=== PATIENT | female | born 1995 | race Caucasian/White ===

== ENCOUNTER 2016-07-08 04:15 | Emergency (ER) | payer BC ==
[2016-07-08] MEDS ORDERED: ALBUTEROL SULFATE 0.083% NEB 2.5 MG/3 ML AMPUL NEB ONE ×3 (05:28→05:55)
[2016-07-08] MEDS ORDERED: IPRATROPIUM/ALBUTEROL 0.5-2.5 MG/3 ML AMPUL NEB ONE (05:49)
[2016-07-08] MEDS ORDERED: PREDNISONE 20 MG TABLET PO ONE (05:49)
--- NOTE | 2016-07-08 05:56 | ER Document Report ---
HPI - HPI Patient complains to provider of: cough, wheeze 1 week Onset: Other - 1 wwek Onset/Duration: Intermittent Quality of pain: Other - soreness Pain Level: 2 Context: 20 yo smoking female with hx asthma has increased cough, wheeze for 1 week. [place] hot to spouse. No n/v/d. No chest pain. Out of albuterol MDI his week. Associated Symptoms: None Exacerbated by: Denies Relieved by: Other - albuterol helps Similar symptoms previously: Yes Recently seen / treated by doctor: No - ROS ROS below otherwise negative: Yes Systems Reviewed and Negative: Yes All other systems reviewed and negative - REPRODUCTIVE Reproductive: DENIES: : - DERM Skin Color: Normal, [place] Past Medical History - General Information source: Patient - Social History Smoking Status: Current Every Day Smoker Chew tobacco use (# tins/day): No Frequency of alcohol use: Rare Drug Abuse: None. denies: Methamphetamine Lives with: Spouse/Significant other Family History: Reviewed & Not Pertinent Pulmonary Medical History: Reports: Hx Asthma Renal/ Medical History: Denies: Hx Peritoneal Dialysis Past Surgical History: Reports: None - Immunizations Immunizations up to date: Yes Hx Diphtheria, Pertussis, Tetanus Vaccination: Yes Vertical Provider Document - CONSTITUTIONAL Agree With Documented VS: Yes Exam Limitations: No Limitations General Appearance: No Apparent Distress - INFECTION CONTROL TRAVEL OUTSIDE OF THE [place]. IN LAST 30 DAYS: No - HEENT HEENT: Normal ENT Exam - NECK Neck: Supple. negative: Lymphadenopathy-Left, Lymphadenopathy-Right - RESPIRATORY Respiratory: Wheezing - coarse insp and exp bilateral O2 Sat by Pulse Oximetry: 95 - CARDIOVASCULAR Cardiovascular: Regular Rate, Regular Rhythm - GI/ABDOMEN Gastrointestinal: Abdomen Soft, Abdomen Non-Tender, No Organomegaly - MUSCULOSKELETAL/EXTREMETIES Musculoskeletal/Extremeties: YAMILKA ADRIAN - NEURO Level of Consciousness: Awake, Alert - DERM Integumentary: Warm, Dry, No Rash Course - Re-evaluation Re-evalutation: 07/08/16 06:28 Patient states that she is breathing a lot better after the breathing treatments. She has had albuterol 5 mg and 1 DuoNeb. She's had prednisone 60 mg with 4 more days of 40 mg . I will be dispensing a albuterol metered-dose inhaler since the pharmacies are closed at this time with a prescription as well. Chest x-ray is negative per radiologist. sHe does have coarse wheezing bilateral that is persisted but less than when she came in. - Vital Signs Vital signs: Temp Pulse Resp BP Pulse Ox 98.1 F 100 20 108/72 95 07/08/16 04:22 07/08/16 04:22 07/08/16 04:22 07/08/16 04:22 07/08/16 04:22 Discharge - Discharge Clinical Impression: asthmatic bronchitis Condition: Good Disposition: HOME, SELF-CARE Instructions: Stop Smoking (REPLACED BY [facility]), Bronchitis With Bronchospasm (Wheezing) (REPLACED BY [facility]) , Steroid Medication, Inhaled Bronchodilators (REPLACED BY [facility]) Additional Instructions: See your primary care doctor quicker care for lung recheck tomorrow Stop smoking Return to the emergency room if worse Please complete the patient satisfaction survey if you get one, and return it.. If you do not receive a survey, then you can go to the REPLACED BY [facility] website, [email or web address] and place your comments about your very good care. Thank you very much. It was a pleasure being your medical provider today. Prescriptions: Albuterol Sulfate [Proair HFA Inhalation Aerosol 8.5 gm MDI] 2 puff IH Q3HP PRN #1 hfa.aer.ad PRN Reason: Prednisone [Deltasone 20 mg Tablet] 40 mg PO DAILY #8 tablet Forms: Return to Work
[2016-07-08] MEDS ORDERED: ALBUTEROL SULFATE HFA (90 MCG/PUFF) 200 PUFF/8.5 GM MDI IH ONE (06:28)
[2016-07-08 06:56] VITALS: BP 116/69
== END 2016-07-08 06:55 | disposition home or self-care (01) ==
LOC: ER 04:15
DX: J45.909 Unspecified asthma, uncomplicated (principal); R05 Cough; R06.2 Wheezing; F17.200 Nicotine dependence, unspecified, uncomplicated
CPT/HCPCS: 94640 ×2; 99284; 71020; J7512; J3490; J7620

== ENCOUNTER 2016-07-16 22:41 | Emergency (ER) | payer BC ==
[2016-07-16] MEDS ORDERED: IPRATROPIUM/ALBUTEROL 0.5-2.5 MG/3 ML AMPUL NEB ONE (22:48)
[2016-07-16] MEDS ORDERED: PREDNISONE 20 MG TABLET PO ONE (22:48)
[2016-07-16] MEDS ORDERED: ALBUTEROL SULFATE 0.083% NEB 2.5 MG/3 ML AMPUL NEB SCH (23:03)
[2016-07-17] MEDS ORDERED: ALBUTEROL SULFATE 0.083% NEB 2.5 MG/3 ML AMPUL NEB ONE ×3 (02:41→05:09)
--- NOTE | 2016-07-17 02:42 | ER Document Report ---
ED Respiratory Problem - General Time seen by provider: 02:42 Mode of Arrival: Ambulatory Information source: Patient TRAVEL OUTSIDE OF THE [place] IN LAST 30 DAYS: No - HPI Patient complains to provider of: Asthma, Cough, Short of breath Onset: Other - 2 weeks Duration: Worse/persistent Quality of pain: Achy Severity: Mild Pain Level: 2 Context: Smoker Short of Breath: Moderate Chest pain/discomfort: Tightness Cough: Productive Sputum amount: Small Sputum color: Yellow Sputum consistency: Mucoid, Thick At home treatment: Bronchodilators Associated symptoms: Congestion, Cough, Short of breath, Wheezing Similar symptoms previously: Yes Recently seen / treated by doctor: No <KAYA BRISCOE - Last Filed: 07/17/16 05:16> <SILVESTRE BECKMAN - Last Filed: 07/17/16 06:54> - General Chief Complaint: Asthma Exacerbation Stated Complaint: DIFFICULTY BREATHING - HPI Notes: Patient is a 20-year-old female with a history of asthma who smoke cigarettes, presents to the emergency room complaining of cough that's productive of yellowish phlegm, difficulty breathing with shortness of breath and wheezing, body aches, symptoms have been going on for the past 2 weeks, she reports she started new job recently and there have been multiple sick contacts at work, she 's been using nebulizer treatments at home with minimal intermittent relief ( KAYA BRISCOE) - Related Data Allergies/Adverse Reactions: No Known Allergies Allergy (Verified 07/08/16 04:32) Past Medical History - General Information source: Patient - Social History Smoking Status: Current Every Day Smoker Chew tobacco use (# tins/day): No Family History: Reviewed & Not Pertinent - Past Medical History Cardiac Medical History: Denies: Hx Heart Attack, Hx Hypertension Pulmonary Medical History: Reports: Hx Asthma Neurological Medical History: Denies: Hx Cerebrovascular Accident, Hx Seizures Renal/ Medical History: Denies: Hx Peritoneal Dialysis GI Medical History: Denies: Hx Hepatitis, Hx Hiatal Hernia, Hx Ulcer Infectious Medical History: Denies: Hx Hepatitis Past Surgical History: Denies: Hx Hysterectomy, Hx Mastectomy, Hx Open Heart Surgery, Hx Pacemaker - Immunizations Immunizations up to date: Yes Hx Diphtheria, Pertussis, Tetanus Vaccination: Yes <KAYA BRISCOE - Last Filed: 07/17/16 05:16> Review of Systems - Review of Systems Constitutional: No symptoms reported EENT: No symptoms reported Cardiovascular: No symptoms reported Respiratory: See HPI Gastrointestinal: No symptoms reported Genitourinary: No symptoms reported Female Genitourinary: No symptoms reported Musculoskeletal: See HPI Skin: No symptoms reported Hematologic/Lymphatic: No symptoms reported Neurological/Psychological: No symptoms reported -: Yes All other systems reviewed and negative <KAYA BRISCOE - Last Filed: 07/17/16 05:16> Physical Exam - Vital signs Interpretation: Tachycardic - General General appearance: Alert In distress: Mild - HEENT Head: Normocephalic, Atraumatic Eyes: Normal Conjunctiva: Normal Extraocular movements intact: Yes Eyelashes: Normal Pupils: PERRL Ears: Normal External canal: Normal Sinus: Normal Nasal: Normal Mouth/Lips: Normal Mucous membranes: Normal Pharynx: Normal Neck: Normal - Respiratory Respiratory status: Tachypnea Chest status: Nontender Breath sounds: Nonproductive cough, Wheezing Chest palpation: Normal - Cardiovascular Rhythm: Regular, Tachycardia Heart sounds: Normal auscultation Murmur: No - Abdominal Inspection: Normal Distension: No distension Bowel sounds: Normal Tenderness: Nontender Organomegaly: No organomegaly - Back Back: Normal, Nontender - Extremities General upper extremity: Normal inspection, Nontender, Normal color, Normal ROM , Normal temperature General lower extremity: Normal inspection, Nontender, Normal color, Normal ROM , Normal temperature, Normal weight bearing. No: Fartun's sign - Neurological Neuro grossly intact: Yes Cognition: Normal Orientation: AAOx4 Eze Coma Scale Eye Opening: Spontaneous Eze Coma Scale Verbal: Oriented [place] Coma Scale Motor: Obeys Commands [place] Coma Scale Total: 15 Speech: Normal Motor strength normal: LUE, RUE, LLE, RLE Sensory: Normal - Psychological Associated symptoms: Normal affect, Normal mood - Skin Skin Temperature: Warm Skin Moisture: Dry Skin Color: Normal <KAYA BRISCOE - Last Filed: 07/17/16 05:16> Course - Laboratory Result Diagrams: 07/17/16 04:29 07/17/16 04:29 - Diagnostic Test Radiology reviewed: Image reviewed, Reports reviewed <KAYA BRISCOE - Last Filed: 07/17/16 05:16> - Laboratory Result Diagrams: 07/17/16 04:29 07/17/16 04:29 <SILVESTRE BECKMAN Last Filed: 07/17/16 06:54> - Re-evaluation Re-evalutation: 07/17/16 05:18 Patient resting comfortably, reports improvement of symptoms, she continues to have diffuse wheezing, although she was moving much more air on reevaluation, lab and imaging findings were discussed with patient at bedside, she will receive tumor nebulized breathing treatments and I anticipate she will be discharged home after that with instructions for follow-up (KAYA BRISCOE) 07/17/16 06:52 Patient reevaluated after completion of neb treatments. She is pleasant and conversant with no conversational dyspnea. Her lung sounds are much improved with just faint occasional expiratory wheeze but good air movement bilaterally. Her tachypnea has resolved. She will be discharged as planned with nebulizer , antibiotics and steroids and a rescue MDI. She will follow-up with her primary care physician. We discussed strict return precautions and she is comfortable with the plan. (SILVESTRE BECKMAN) - Vital Signs Vital signs: Temp Pulse Resp BP Pulse Ox 99.7 F 120 H 34 H 118/69 97 07/17/16 01:53 07/17/16 01:53 07/17/16 05:31 07/17/16 05:31 07/17/16 05:31 - Laboratory Laboratory results interpreted by me: 07/17/16 07/17/16 04:29 04:29 RDW 14.4 H Seg Neuts % (Manual) 92 H Band Neutrophils % 2 L Lymphocytes % (Manual) 3 L Abs Lymphs (Manual) 0.2 L Chloride 109 H Carbon Dioxide 19 L BUN 6 L Glucose 129 H AST 40 H Discharge <KAYA BRISCOE - Last Filed: 07/17/16 05:16> <SILVESTRE BECKMAN - Last Filed: 07/17/16 06:54> - Discharge Clinical Impression: Acute bronchitis Qualifiers: Bronchitis organism: unspecified organism Qualified Code(s): J20.9 - Acute bronchitis, unspecified Acute asthma exacerbation Qualifiers: Asthma severity: mild persistent Qualified Code(s): J45.31 - Mild persistent asthma with (acute) exacerbation Condition: Stable Disposition: HOME, SELF-CARE Instructions: Asthma ([facility]), Azithromycin ([facility]), Stop Smoking ([facility]), Inhaled Bronchodilators ([facility]) Additional Instructions: Follow up with your primary care provider in one to 2 days. Return to the emergency room immediately if symptoms worsen or any additional concerns. Prescriptions: Albuterol Sulfate [Proair HFA Inhalation Aerosol 8.5 gm MDI] 1 puff IH Q4 PRN # 1 mdi PRN Reason: Albuterol Sulfate [Albuterol Sulfate 2.5mg/3 mL] 1 vial IH Q4 PRN #30 vial PRN Reason: Azithromycin [Zithromax 250 mg Tablet] 250 mg PO ASDIR PRN #6 tablet PRN Reason: Prednisone 40 mg PO DAILY #8 tablet Forms: Smoking Cessation Education, Return to Work Referrals: ERON KILLIAN NP [Primary Care Provider] - Follow up as needed
[2016-07-17] MEDS ORDERED: METHYLPREDNISOLONE INJ 125 MG/2 ML SDV IV ONE (03:47)
[2016-07-17] MEDS ORDERED: MAGNESIUM SULFATE/D5W 1 GM/100 ML RTUPB IV ONE ×2 (03:47→03:48)
[2016-07-17 04:51] LABS: HEMATOCRIT 39.6 % (36.0-47.0); HEMOGLOBIN 13.7 g/dL (12.0-15.5); HGB HCT DIFFERENCE 1.5; MEAN CORPUSCULAR HEMOGLOBIN 29.2 pg (27.0-33.4); MEAN CORPUSCULAR HGB CONC 34.5 g/dL (32.0-36.0); MEAN CORPUSCULAR VOLUME 85 fl (80-97); RED BLOOD COUNT 4.67 10^6/uL (3.72-5.28); RED CELL DISTRIBUTION WIDTH 14.4 % (11.5-14.0); WHITE BLOOD COUNT 7.9 10^3/uL (4.0-10.5)
[2016-07-17 05:02] LABS: ALANINE AMINOTRANSFERASE 37 U/L (9-52); ALBUMIN 4.1 g/dL (3.5-5.0); ALKALINE PHOSPHATASE 71 U/L (38-126); ANION GAP 15 (5-19); ASPARTATE AMINO TRANSFERASE 40 U/L (14-36); BILIRUBIN,DIRECT 0.3 mg/dL (0.0-0.4); BILIRUBIN,TOTAL 0.5 mg/dL (0.2-1.3); BLOOD UREA NITROGEN 6 mg/dL (7-20); CALCIUM 9.4 mg/dL (8.4-10.2); CARBON DIOXIDE 19 mmol/L (22-30); CHLORIDE 109 mmol/L (98-107); CREATININE RESULT 0.68 mg/dL (0.52-1.25); GLUCOSE 129 mg/dL (75-110); POTASSIUM 3.9 mmol/L (3.6-5.0); SODIUM 143.2 mmol/L (137-145); TOTAL PROTEIN 6.9 g/dL (6.3-8.2)
[2016-07-17] MEDS ORDERED: IPRATROPIUM/ALBUTEROL 0.5-2.5 MG/3 ML AMPUL NEB ONE (05:09)
[2016-07-17 05:34] LABS: BAND NEUTROPHILS % (MANUAL) 2 % (3-5); BASOPHILS % (MANUAL) 0 % (0-2); EOSINOPHILS % (MANUAL) 0 % (0-6); LYMPHOCYTES % (MANUAL) 3 % (13-45); TOTAL CELLS COUNTED 100
[2016-07-17 05:35] LABS: TOXIC VACUOLATION PRESENT
[2016-07-17 05:36] LABS: ANISOCYTOSIS SLIGHT; OVALOCYTES 1+; POIKILOCYTOSIS 1+
[2016-07-17 07:44] VITALS: BP 106/68
== END 2016-07-17 07:15 | disposition home or self-care (01) ==
LOC: ER 22:41
DX: J45.31 Mild persistent asthma with (acute) exacerbation (principal); J20.9 Acute bronchitis, unspecified; R05 Cough; R06.02 Shortness of breath; R00.0 Tachycardia, unspecified; F17.210 Nicotine dependence, cigarettes, uncomplicated
CPT/HCPCS: 94640 ×2; 99285; 96375; 96365; 36415; 87040; 84703; 85025; 80053; 71020; J2930; J3475; J7512; J7620 ×2

== ENCOUNTER → 2017-08-28 | Outpatient (CLI) | payer MEDICAID ==
--- NOTE | 2017-08-28 16:39 | RADIOLOGY REPORT (SQ) ---
EXAM DESCRIPTION: U/S [id number] TRNABD 1GES W/ODOP COMPLETED DATE/TIME: 08/28/2017 4:15 pm REASON FOR STUDY: Z34.81 ENCOUNTER FOR SUPRVSN OF NORMAL , FIRST TRIMESTER Z34.81 ENCOUNTE R FOR SUPRVSN OF NORMAL , FIRST TRIM COMPARISON: None. TECHNIQUE: Transabdominal static and realtime grayscale images acquired of the pelvis. Additional se lected spectral and color Doppler images recorded. All images stored on PACs. bHCG: Not available. CLINICAL DATES: Not Available. LIMITATIONS: None. FINDINGS: FETUS: Living intrauterine . ULTRASOUND EGA: 11 weeks 1 day ULTRASOUND YAMILA: 11/15/2017 CRL: 4.3 cm FHR: 162 beats per minute. SUBCHORIONIC BLEED: No. SIZE OF BLEED: Not applicable. UTERUS: No masses. No anomalies. CERVICAL LENGTH: 3.6 cm Closed. RIGHT ADNEXA: Ovary not identified. No adnexal free fluid. No adnexal masses. LEFT ADNEXA: Ovary not identified. No adnexal free fluid. No adnexal masses. FREE FLUID: None. OTHER: No other significant finding. IMPRESSION: LIVING INTRAUTERINE . EGA 11 weeks 1 day. Trimester of : First - 0 to 13 weeks. TECHNICAL DOCUMENTATION: JOB ID: [id number] [employer]- All Rights Reserved Reading location - IP/workstation name: [email or web address]
== END ==
LOC: RAD 16:56
PROVIDERS: ATTEND Nurse Practitioner Women's Health
DX: Z34.81 Encounter for supervision of other normal pregnancy, first trimester (principal); Z3A.11 11 weeks gestation of pregnancy
CPT/HCPCS: 76801

== ENCOUNTER 2017-10-15 12:00 | Inpatient (IN) | payer MEDICAID ==
--- NOTE | 2017-10-15 12:27 | ER Document Report ---
ED Medical Screen (RME) - General Chief Complaint: Breathing Difficulty Stated Complaint: SHORTNESS OF BREATH Time Seen by Provider: 10/15/17 12:20 Notes: 22-year-old female patient with asthma porch coughing a lot and difficult to breathing for the past week. There is some pain with breathing. She has been using her nebulizer but it is not helping. She is quite dyspneic with a respiratory rate near 40, tight inspiratory and expiratory wheezes, she is having to push quite hard to exhale. Patient is 18 weeks by history. She is being moved to the room now, and a racemic epi treatment being done as her albuterol nebulizer has not been helping. I have greeted and performed a rapid initial assessment of this patient. A comprehensive ED assessment and evaluation of the patient, analysis of test results and completion of the medical decision making process will be conducted by additional ED providers. TRAVEL OUTSIDE OF THE [place].S. IN LAST 30 DAYS: No - Related Data Allergies/Adverse Reactions: No Known Allergies Allergy (Verified 10/15/17 12:01) Past Medical History - Past Medical History Cardiac Medical History: Denies: Hx Heart Attack, Hx Hypertension Pulmonary Medical History: Reports: Hx Asthma Neurological Medical History: Denies: Hx Cerebrovascular Accident, Hx Seizures Renal/ Medical History: Denies: Hx Peritoneal Dialysis GI Medical History: Denies: Hx Hepatitis, Hx Hiatal Hernia, Hx Ulcer Infectious Medical History: Denies: Hx Hepatitis Past Surgical History: Denies: Hx Hysterectomy, Hx Mastectomy, Hx Open Heart Surgery, Hx Pacemaker - Immunizations Immunizations up to date: Yes Hx Diphtheria, Pertussis, Tetanus Vaccination: Yes Physical Exam - Vital signs Vitals: Temp Pulse Resp BP Pulse Ox 98.0 F 103 H 20 115/69 95 10/15/17 12:06 10/15/17 12:06 10/15/17 12:06 10/15/17 12:06 10/15/17 12:06 Course - Vital Signs Vital signs: Temp Pulse Resp BP Pulse Ox 98.0 F 103 H 35 H 115/69 95 10/15/17 12:06 10/15/17 12:06 10/15/17 12:16 10/15/17 12:06 10/15/17 12:06 Doctor's Discharge - Discharge Referrals: DERICK STEVEN NP [Primary Care Provider] - Follow up as needed
[2017-10-15] MEDS ORDERED: RACEPINEPHRINE HCL 2.25% NEB 0.5 ML AMPUL NEB ONE (12:29)
[2017-10-15] MEDS ORDERED: METHYLPREDNISOLONE INJ 125 MG/2 ML SDV IV ONE (13:05)
[2017-10-15] MEDS ORDERED: NORMAL SALINE 1000 ML 1,000 ML IV PRN (13:17)
[2017-10-15] MEDS ORDERED: NORMAL SALINE 1000 ML 1,000 ML IV ONE (13:17)
[2017-10-15] MEDS ORDERED: IPRATROPIUM/ALBUTEROL 0.5-2.5 MG/3 ML AMPUL NEB ONE (13:23)
--- NOTE | 2017-10-15 13:27 | ER Document Report ---
ED Respiratory Problem - General Chief Complaint: Breathing Difficulty Stated Complaint: SHORTNESS OF BREATH Time Seen by Provider: 10/15/17 12:20 Mode of Arrival: Ambulatory Information source: Patient Notes: Chief complaint: Shortness of breath History of complain: A 22 years old female with a history of asthma presents today with increased exacerbation for over the last 24 hours, increased wheezing since last night. No fever chills or other constitutional symptoms. Denies any productive cough Onset: As above Duration: Last 24 hours Severity: Moderate to severe Quality: Wheezing Context: Allergic to environmental pollens and heat Exacerbating factor and relieving factors: Heat makes her asthma worse REVIEW OF SYSTEMS: CONSTITUTIONAL : Denies fever, chills, or sweats. Denies recent illness. EENT: Denies eye, ear, throat, or mouth pain or symptoms. Denies nasal or sinus congestion or discharge. Denies throat, tongue, or mouth swelling or difficulty swallowing. CARDIOVASCULAR: Denies chest pain. Denies palpitations or racing or irregular heart beat. Denies ankle edema. RESPIRATORY: As per history of complain GASTROINTESTINAL: Denies abdominal pain or distention. Denies nausea, vomiting , or diarrhea. Denies blood in vomitus, stools, or per rectum. Denies black, tarry stools. Denies constipation. GENITOURINARY: Denies difficulty urinating, painful urination, burning, frequency, blood in urine, or discharge. MUSCULOSKELETAL: Denies back or neck pain or stiffness. Denies joint pain or swelling. SKIN: Denies rash, lesions or sores. HEMATOLOGIC : Denies easy bruising or bleeding. LYMPHATIC: Denies swollen, enlarged glands. NEUROLOGICAL: Denies confusion or altered mental status. Denies passing out or loss of consciousness. Denies dizziness or lightheadedness. Denies headache. Denies weakness or paralysis or loss of use of either side. Denies problems with gait or speech. Denies sensory loss, numbness, or tingling. Denies seizures. PSYCHIATRIC: Denies anxiety or stress. Denies depression, suicidal ideation, or homicidal ideation. ALL OTHER SYSTEMS REVIEWED AND NEGATIVE. Dictation was performed using [employer] voice recognition software PHYSICAL EXAMINATION: GENERAL: Well-appearing, well-nourished and in no acute distress. HEAD: Atraumatic, normocephalic. EYES: Pupils equal round and reactive to light, extraocular movements intact, sclera anicteric, conjunctiva are normal. ENT: Nares patent, oropharynx clear without exudates. Moist mucous membranes. NECK: Normal range of motion, supple without lymphadenopathy LUNGS: Breath sounds .... Bilateral diffuse expiratory wheezes . HEART: Regular rate and rhythm without murmurs ABDOMEN: Soft, nontender, nondistended abdomen. No guarding, no rebound. No masses appreciated. Musculoskeletal: Normal range of motion, no pitting or edema. No cyanosis. NEUROLOGICAL: Cranial nerves grossly intact. Normal speech, normal gait. Normal sensory, motor exams PSYCH: Normal mood, normal affect. SKIN: Warm, Dry, normal turgor, no rashes or lesions noted. TRAVEL OUTSIDE OF THE [place].S. IN LAST 30 DAYS: No - HPI Severity: Moderate Notes: Dictated - Related Data Allergies/Adverse Reactions: No Known Allergies Allergy (Verified 10/15/17 12:01) Past Medical History - Social History Smoking Status: Former Smoker Cigarette use (# per day): No Chew tobacco use (# tins/day): No Frequency of alcohol use: None Drug Abuse: None Family History: Reviewed & Not Pertinent Patient has suicidal ideation: No Patient has homicidal ideation: No - Past Medical History Cardiac Medical History: Denies: Hx Heart Attack, Hx Hypertension Pulmonary Medical History: Reports: Hx Asthma Neurological Medical History: Denies: Hx Cerebrovascular Accident, Hx Seizures Renal/ Medical History: Denies: Hx Peritoneal Dialysis GI Medical History: Denies: Hx Hepatitis, Hx Hiatal Hernia, Hx Ulcer Infectious Medical History: Denies: Hx Hepatitis Past Surgical History: Denies: Hx Hysterectomy, Hx Mastectomy, Hx Open Heart Surgery, Hx Pacemaker - Immunizations Immunizations up to date: Yes Hx Diphtheria, Pertussis, Tetanus Vaccination: Yes Review of Systems - Review of Systems Notes: Dictated Physical Exam - Vital signs Vitals: Temp Pulse Resp BP Pulse Ox 98.0 F 103 H 20 115/69 95 10/15/17 12:06 10/15/17 12:06 10/15/17 12:06 10/15/17 12:10/15/17 12:06 - Notes Notes: Dictated Course - Vital Signs Vital signs: Temp Pulse Resp BP Pulse Ox 98.8 F 108 H 20 110/53 L 90 L 10/15/17 16:28 10/15/17 16:28 10/15/17 16:28 10/15/17 16:28 10/15/17 16:28 Discharge - Discharge Clinical Impression: Acute exacerbation of extrinsic asthma Condition: Stable Disposition: ADMITTED INPATIENT Admitting Provider: Hospitalist Unit Admitted: IMCU Referrals: DERICK STEVEN NP [NO LOCAL MD] - Follow up as needed
[2017-10-15] MEDS: MAGNESIUM SULFATE/D5W 1 GM/100 ML RTUPB IV SCH ×3 (14:51→21:07)
[2017-10-15] MEDS ORDERED: HYDROCODONE BIT/HOMATROPINE SYRUP 5 ML UDCUP PO ONE (14:54)
[2017-10-15] MEDS ORDERED: HYDROCODONE BIT/HOMATROPINE 5-1.5 MG TABLET PO ONE (15:15)
--- NOTE | 2017-10-15 15:19 | RADIOLOGY REPORT (SQ) ---
EXAM DESCRIPTION: CHEST SINGLE VIEW COMPLETED DATE/TIME: 10/15/2017 1:13 pm REASON FOR STUDY: Asthma exacerbation COMPARISON: 07/17/2016. EXAM PARAMETERS: NUMBER OF VIEWS: One view. TECHNIQUE: Single frontal radiographic view of the chest acquired. RADIATION DOSE: NA LIMITATIONS: None. FINDINGS: LUNGS AND PLEURA: No opacities, masses or pneumothorax. No pleural effusion. MEDIASTINUM AND HILAR STRUCTURES: No masses. Contour normal. HEART AND VASCULAR STRUCTURES: Heart normal in size. Normal vasculature. BONES: No acute findings. HARDWARE: None in the chest. OTHER: No other significant finding. IMPRESSION: NO ACUTE RADIOGRAPHIC FINDING IN THE CHEST. TECHNICAL DOCUMENTATION: JOB ID: [id number] [employer]- All Rights Reserved Reading location - IP/workstation name: [email or web address]
[2017-10-15] MEDS ORDERED: MAG HYDROX/AL HYDROX/SIMETH SUSP 30 ML UDCUP PO PRN (19:20)
[2017-10-15] MEDS ORDERED: ACETAMINOPHEN 325 MG TABLET PO PRN (19:20)
[2017-10-15] MEDS: IPRATROPIUM/ALBUTEROL 0.5-2.5 MG/3 ML AMPUL NEB SCH (20:38)
[2017-10-15] MEDS ORDERED: CHLORPHENIRAMINE MALEATE 4 MG TABLET PO ONE (21:00)
[2017-10-15] MEDS: HEPARIN SOD (PORCINE) 5,000 UNIT/ML 1 ML SYRINGE SUBCUT SCH (22:48)
[2017-10-15] MEDS: FAMOTIDINE 20 MG TABLET PO SCH (23:41)
[2017-10-16] MEDS: MAGNESIUM SULFATE/D5W 1 GM/100 ML RTUPB IV SCH ×4 (00:18→23:33)
[2017-10-16] MEDS ORDERED: IPRATROPIUM/ALBUTEROL 0.5-2.5 MG/3 ML AMPUL NEB ONE (00:23)
[2017-10-16 00:26] LABS: ABSOLUTE RETICS # 0.104 10^6/uL (0.028-0.122); HEMATOCRIT 38.5 % (36.0-47.0); HEMOGLOBIN 13.2 g/dL (12.0-15.5); MEAN CORPUSCULAR HEMOGLOBIN 30.8 pg (27.0-33.4); MEAN CORPUSCULAR HGB CONC 34.2 g/dL (32.0-36.0); MEAN CORPUSCULAR VOLUME 90 fl (80-97); PLATELET COUNT 293 10^3/uL (150-450); RED BLOOD COUNT 4.28 10^6/uL (3.72-5.28); RED CELL DISTRIBUTION WIDTH 14.6 % (11.5-14.0); RETICULOCYTE COUNT (AUTO) 2.44 % (0.66-2.85); WHITE BLOOD COUNT 21.6 10^3/uL (4.0-10.5)
[2017-10-16 00:32] LABS: IRON(TIBC) 15.8 ug/dL (37-170)
[2017-10-16] MEDS: FLUTICASONE NASAL SPRAY 50 MCG/SPRY 120 SPRAY/16 GM NASL SCH ×3 (00:33→22:31)
[2017-10-16] MEDS ORDERED: METHYLPREDNISOLONE INJ 125 MG/2 ML SDV IV ONE (00:45)
[2017-10-16 00:46] LABS: ABSOLUTE LYMPHOCYTES# (MANUAL) 1.1 10^3/uL (0.5-4.7); ABSOLUTE MONOCYTES # (MANUAL) 1.5 10^3/uL (0.1-1.4); BASOPHILS % (MANUAL) 0 % (0-2); EOSINOPHILS % (MANUAL) 0 % (0-6); LYMPHOCYTES % (MANUAL) 5 % (13-45); MONOCYTES % (MANUAL) 7 % (3-13); SEGMENTED NEUTROPHILS % (MAN) 88 % (42-78); TOTAL CELLS COUNTED 100
[2017-10-16 00:47] LABS: PLATELET COMMENT ADEQUATE; RBC MORPHOLOGY COMMENT NORMO-CYTIC/CHROMIC
[2017-10-16 01:40] LABS: FOLATE > 20.00 ng/mL (>2.76)
[2017-10-16] MEDS: IPRATROPIUM/ALBUTEROL 0.5-2.5 MG/3 ML AMPUL NEB SCH ×4 (02:30→19:32)
[2017-10-16] MEDS: HEPARIN SOD (PORCINE) 5,000 UNIT/ML 1 ML SYRINGE SUBCUT SCH ×3 (05:31→22:32)
[2017-10-16] MEDS: METHYLPREDNISOLONE INJ 125 MG/2 ML SDV IV SCH ×3 (05:31→22:31)
[2017-10-16] MEDS: IPRATROPIUM/ALBUTEROL 0.5-2.5 MG/3 ML AMPUL NEB PRN ×3 (05:51→22:28)
[2017-10-16 06:40] LABS: ANION GAP 14 (5-19); BLOOD UREA NITROGEN 4 mg/dL (7-20); CALCIUM 9.3 mg/dL (8.4-10.2); CARBON DIOXIDE 16 mmol/L (22-30); CHLORIDE 113 mmol/L (98-107); GLUCOSE 116 mg/dL (75-110); POTASSIUM 4.5 mmol/L (3.6-5.0); SODIUM 143.3 mmol/L (137-145)
[2017-10-16 06:52] LABS: HEMATOCRIT 40.1 % (36.0-47.0); HEMOGLOBIN 13.7 g/dL (12.0-15.5); MEAN CORPUSCULAR HEMOGLOBIN 30.9 pg (27.0-33.4); MEAN CORPUSCULAR HGB CONC 34.1 g/dL (32.0-36.0); MEAN CORPUSCULAR VOLUME 91 fl (80-97); PLATELET COUNT 269 10^3/uL (150-450); RED BLOOD COUNT 4.42 10^6/uL (3.72-5.28); RED CELL DISTRIBUTION WIDTH 14.5 % (11.5-14.0)
[2017-10-16 07:43] LABS: ABSOLUTE LYMPHOCYTES# (MANUAL) 0.4 10^3/uL (0.5-4.7); ABSOLUTE MONOCYTES # (MANUAL) 0.4 10^3/uL (0.1-1.4); ABSOLUTE NEUTROPHILS# (MANUAL) 20.2 10^3/uL (1.7-8.2); BAND NEUTROPHILS % (MANUAL) 1 % (3-5); BASOPHILS % (MANUAL) 0 % (0-2); EOSINOPHILS % (MANUAL) 0 % (0-6); LYMPHOCYTES % (MANUAL) 2 % (13-45); MONOCYTES % (MANUAL) 2 % (3-13); PLATELET COMMENT ADEQUATE; POLYCHROMASIA SLIGHT; SEGMENTED NEUTROPHILS % (MAN) 95 % (42-78); TOTAL CELLS COUNTED 100; TOXIC GRANULATION SLIGHT
[2017-10-16] MEDS: FAMOTIDINE 20 MG TABLET PO SCH ×2 (09:27→22:31)
[2017-10-16] MEDS: LORATADINE 10 MG TABLET PO SCH (09:28)
[2017-10-16] MEDS: DOCUSATE SODIUM 100 MG CAPSULE PO SCH ×2 (09:31→17:42)
[2017-10-16] MEDS: NORMAL SALINE 1000 ML 1,000 ML IV PRN ×2 (09:31→23:58)
--- NOTE | 2017-10-16 10:05 | PDOC CONSULTATION ---
Consultation Consult Date: 10/16/17 Consult reason:: 18 wks EGA with asthma staticus History of Present Illness Admission Date/PCP: 10/15/17 17:56 Patient complains of: SOB and dyspnea History of Present Illness: ANA WHALEN is a 22 year old female with long history or asthma that was previously relatively well controlled. This is her second Past Medical History Cardiac Medical History: Denies: Myocardial Infarction, Hypertension Pulmonary Medical History: Reports: Asthma Neurological Medical History: Denies: Seizures GI Medical History: Denies: Hepatitis, Hiatal Hernia Psychiatric Medical History: Denies: Depression Social History Smoking Status: Former Smoker Frequency of Alcohol Use: None Hx Recreational Drug Use: No Hx Prescription Drug Abuse: No - Advance Directive Resuscitation Status: Full Code Family History Family History: Reviewed & Not Pertinent Parental Family History Reviewed: Yes Children Family History Reviewed: Yes Sibling(s) Family History Reviewed.: Yes Medication/Allergy Home Medications: Albuterol Sulfate [Proair HFA] 2 puff IH Q4HP PRN 10/15/17 Allergies/Adverse Reactions: No Known Allergies Allergy (Verified 10/15/17 12:01) Review of Systems Constitutional: PRESENT: as per HPI Physical Exam - Physical Exam Vital Signs: Temp Pulse Resp BP Pulse Ox 98.3 F 111 H 30 H 123/61 93 10/16/17 07:09 10/16/17 08:09 10/16/17 08:09 10/16/17 07:09 10/16/17 08:09 Intake & Output 10/15/17 10/16/17 10/17/17 06:59 06:59 06:59 Intake Total 466 Balance 466 Weight 61.4 kg General appearance: PRESENT: cooperative, mild distress, thin Teeth exam: PRESENT: dental caries, poor dentation Respiratory exam: PRESENT: accessory muscle use, crackles, tachypnea - Obstetrical Exam Fundal Height: u/u - u/2 Result Laboratory Results: 10/16/17 06:08 10/16/17 06:08 10/16/17 10/16/17 10/16/17 00:12 00:12 06:08 WBC 21.6 H 21.0 H RBC 4.28 4.42 Hgb 13.2 13.7 Hct 38.5 40.1 MCV 90 91 MCH 30.8 30.9 MCHC 34.2 34.1 RDW 14.6 H 14.5 H Plt Count 293 269 Seg Neutrophils % Not Reportable Not Reportable Lymphocytes % Not Reportable Not Reportable Monocytes % Not Reportable Not Reportable Eosinophils % Not Reportable Not Reportable Basophils % Not Reportable Not Reportable Absolute Neutrophils Not Reportable Not Reportable Absolute Lymphocytes Not Reportable Not Reportable Absolute Monocytes Not Reportable Not Reportable Absolute Eosinophils Not Reportable Not Reportable Absolute Basophils Not Reportable Not Reportable Retic Count (auto) 2.44 Absolute Retic 0.104 Sodium Potassium Chloride Carbon Dioxide Anion Gap BUN Creatinine Est GFR ( Amer) Est GFR (Non-Af Amer) Glucose Calcium Iron 15.8 L TIBC 414 % Saturation 4 Ferritin 38.90 Vitamin B12 584.0 Folate > 20.00 10/16/17 06:08 WBC RBC Hgb Hct MCV MCH MCHC RDW Plt Count Seg Neutrophils % Lymphocytes % Monocytes % Eosinophils % Basophils % Absolute Neutrophils Absolute Lymphocytes Absolute Monocytes Absolute Eosinophils Absolute Basophils Retic Count (auto) Absolute Retic Sodium 143.3 Potassium 4.5 Chloride 113 H Carbon Dioxide 16 L Anion Gap 14 BUN 4 L Creatinine 0.48 L Est GFR ( Amer) > 60 Est GFR (Non-Af Amer) > 60 Glucose 116 H Calcium 9.3 Iron TIBC % Saturation Ferritin Vitamin B12 Folate Impressions: Chest X-Ray 10/15/17 12:32 IMPRESSION: NO ACUTE RADIOGRAPHIC FINDING IN THE CHEST. Assessment & Plan - Time Time Spent: 30 to 50 Minutes Critical Time spent with patient: Less than 15 minutes Anticipated discharge: Home Within: within 72 hours - Plan Summary Plan Summary: at this gestational age there would be no interventions on the behalf of the fetus should delivery become necessary or imminent at the gestational age is previable. would recommend continuing with current medication use. Steroids although concerning for IUGR risks, are preferred for mothers condition. will evaluate in later 2nd and thrid trimester for growth. currently would recommend doing dopplers for heart tones q daily while hospitalized. Thank you for the consult.
--- NOTE | 2017-10-16 11:52 | PDOC PROGRESS REPORT ---
Subjective Progress Note for:: 10/16/17 Subjective:: This is 22 years old female 2 para 18 weeks presents with chief complaint of shortness of breath and wheezing. Patient has history of bronchial asthma since childhood. She reports that heat precipitated her asthma attack. She has been on bronchodilator Solu-Medrol and she was also given intermittently mag sulfate. She reports mild improvement. Reason For Visit: ASTHMA EXACERBATION 18 WKS Physical Exam Vital Signs: Temp Pulse Resp BP Pulse Ox 98.3 F 108 H 28 H 123/61 93 10/16/17 07:09 10/16/17 11:39 10/16/17 11:39 10/16/17 07:09 10/16/17 11:39 Intake & Output 10/15/17 10/16/17 10/17/17 06:59 06:59 06:59 Intake Total 466 Balance 466 Weight 61.4 kg General appearance: PRESENT: other - Moderate respiratory distress Head exam: PRESENT: atraumatic, normocephalic Eye exam: PRESENT: conjunctiva pink Neck exam: ABSENT: carotid bruit, JVD, lymphadenopathy, thyromegaly Respiratory exam: PRESENT: wheezes GI/Abdominal exam: PRESENT: normal bowel sounds, soft. ABSENT: distended, guarding, mass, organolmegaly, rebound, tenderness Neurological exam: PRESENT: alert, awake, oriented to time, oriented to situation Psychiatric exam: PRESENT: normal mood Results Laboratory Results: 10/16/17 06:08 10/16/17 06:08 10/16/17 10/16/17 10/16/17 00:12 00:12 06:08 WBC 21.6 H 21.0 H RBC 4.28 4.42 Hgb 13.2 13.7 Hct 38.5 40.1 MCV 90 91 MCH 30.8 30.9 MCHC 34.2 34.1 RDW 14.6 H 14.5 H Plt Count 293 269 Seg Neutrophils % Not Reportable Not Reportable Lymphocytes % Not Reportable Not Reportable Monocytes % Not Reportable Not Reportable Eosinophils % Not Reportable Not Reportable Basophils % Not Reportable Not Reportable Absolute Neutrophils Not Reportable Not Reportable Absolute Lymphocytes Not Reportable Not Reportable Absolute Monocytes Not Reportable Not Reportable Absolute Eosinophils Not Reportable Not Reportable Absolute Basophils Not Reportable Not Reportable Retic Count (auto) 2.44 Absolute Retic 0.104 Sodium Potassium Chloride Carbon Dioxide Anion Gap BUN Creatinine Est GFR ( Amer) Est GFR (Non-Af Amer) Glucose Calcium Iron 15.8 L TIBC 414 % Saturation 4 Ferritin 38.90 Vitamin B12 584.0 Folate > 20.00 10/16/17 06:08 WBC RBC Hgb Hct MCV MCH MCHC RDW Plt Count Seg Neutrophils % Lymphocytes % Monocytes % Eosinophils % Basophils % Absolute Neutrophils Absolute Lymphocytes Absolute Monocytes Absolute Eosinophils Absolute Basophils Retic Count (auto) Absolute Retic Sodium 143.3 Potassium 4.5 Chloride 113 H Carbon Dioxide 16 L Anion Gap 14 BUN 4 L Creatinine 0.48 L Est GFR ( Amer) > 60 Est GFR (Non-Af Amer) > 60 Glucose 116 H Calcium 9.3 Iron TIBC % Saturation Ferritin Vitamin B12 Folate Impressions: Chest X-Ray 10/15/17 12:32 IMPRESSION: NO ACUTE RADIOGRAPHIC FINDING IN THE CHEST. Assessment & Plan - Diagnosis (1) ACUTE ASTHMA ATTACK Is this a current diagnosis for this admission?: Yes Plan: Continue bronchodilator, supplemental oxygen and Solu-Medrol (2) Qualifiers: Weeks of gestation: 18 weeks Qualified Code(s): Z3A.18 - 18 weeks gestation of Is this a current diagnosis for this admission?: Yes Plan: Follow-up per [facility]
[2017-10-16] MEDS ORDERED: ALBUTEROL SULFATE 0.083% NEB 2.5 MG/3 ML AMPUL NEB ONE ×2 (13:51→15:00)
[2017-10-16 14:00] LABS: ARTERIAL BLOOD BASE EXCESS -7.8 mmol/L; ARTERIAL BLOOD H2CO3 0.84 mmol/L (1.05-1.35); ARTERIAL BLOOD HCO3 15.9 mmol/L (20-26); ARTERIAL BLOOD O2 SATURATION 95.6 % (94-98); ARTERIAL BLOOD PCO2 27.8 mmHg (35-45); ARTERIAL BLOOD PH 7.37 (7.35-7.45); ARTERIAL BLOOD TOTAL CO2 16.7 mmol/L (21-25)
[2017-10-16 14:04] LABS: ARTERIAL BLOOD FIO2 3L
--- NOTE | 2017-10-16 14:22 | Physician Advisory Note ---
Physician Advisor ProgressNote .: Pursuant to the plan for Mike Yap, I have reviewed the medical record for this patient. Physician Advisor Statement: Nice documentation of concerns - pt w/exacerb asthma, despite 1 night of aggressive hospital care still has mod resp distress & needs ongoing hospital level care & monitoring. Care given w/meds/doses due to incidental . Please consider documenting, if you agree: 1. "acute exac of type asthma, with incidental " - A. "mild intermittent"? "mild/mod/sev persistent"? (reference below dashed line) - B. Payers need it explicit for all dx.s: related to pt's ? or a totally separate, non-OB, issue? (Affects billing.) Status: Most asthma/COPD exac.s are "Obs 'til proven otherwise", but this pt not yet safe for d/c after 1 night of hospital care - agree w/ Inpatient status. Thanks! CK REFERENCE: Dx of type of chronic asthma is based on worst category in which pt has at least 1 of following s/s present at baseline: A. Mild Intermittent: only needs albuterol occasionally. B. Mild Persistent: sx >2x/wk, nocturnal sx up to 4x/mo, FEV1 80+% predicted C. Mod Persistent: sx (or albuterol) daily, nocturnal sx >1x/wk, FEV1 60-80% predicted D. Severe Persistent: activities curtailed, frequent exacerbations, noct sx frequent, FEV1 <60% predicted.
[2017-10-16] MEDS: MAGNESIUM SULFATE 1 GM/D5W 100 ML IV SCH ×2 (17:40→19:05)
--- NOTE | 2017-10-16 18:39 | PDOC CONSULTATION ---
Consultation Consult Date: 10/16/17 Attending physician:: BRIELLE HENLEY History of Present Illness Admission Date/PCP: 10/15/17 17:56 History of Present Illness: ANA WHALEN is a 22 year old female,cough x 1 week worse last two days productive yellow-green phlem no hemotysis questionable fever and chills.She does not follow her peak flows She has never smoked but has had large exsposure to passive smoke.Hx of astma at childhood did not affect her first .one dog no recent travels no sick contacts Past Medical History Cardiac Medical History: Denies: Myocardial Infarction, Hypertension Pulmonary Medical History: Reports: Asthma Neurological Medical History: Denies: Seizures GI Medical History: Denies: Hepatitis, Hiatal Hernia Psychiatric Medical History: Denies: Depression Hematology: Denies: Anemia, Sickle Cell Disease Past Surgical History Past Surgical History: Denies: Amputation, Hysterectomy, Mastectomy, Pacemaker Social History Information Source: [facility] Records Smoking Status: Former Smoker Frequency of Alcohol Use: None Hx Recreational Drug Use: No Hx Prescription Drug Abuse: No - Advance Directive Resuscitation Status: Full Code Family History Parental Family History Reviewed: No Children Family History Reviewed: No Sibling(s) Family History Reviewed.: No Medication/Allergy Allergies/Adverse Reactions: No Known Allergies Allergy (Verified 10/15/17 12:01) Review of Systems Constitutional: PRESENT: chills, fever(s). ABSENT: night sweats Eyes: PRESENT: visual disturbances Ears: PRESENT: hearing changes Nose, Mouth, and Throat: PRESENT: sore throat. ABSENT: mouth pain Cardiovascular: PRESENT: dyspnea on exertion. ABSENT: edema, orthropnea, palpitations Respiratory: PRESENT: cough, dyspnea, sputum. ABSENT: hemoptysis Gastrointestinal: PRESENT: dysphagia, heartburn. ABSENT: abdominal pain, bloating, coffee ground emesis, hematemesis, hematochezia, melena, nausea, vomiting Genitourinary: ABSENT: difficulty urinating, hematuria Musculoskeletal: PRESENT: back pain. ABSENT: joint swelling Integumentary: ABSENT: pruritus, rash Neurological: ABSENT: abnormal movements, abnormal speech, focal weakness, frequent falls, lack of coordination, memory loss Psychiatric: ABSENT: hallucinations, homidical ideation, suicidal ideation Endocrine: ABSENT: cold intolerance, heat intolerance, polydipsia, polyuria Hematologic/Lymphatic: ABSENT: lymphadenopathy Allergic/Immunologic: PRESENT: seasonal rhinorrhea Physical Exam Vital Signs: Temp Pulse Resp BP Pulse Ox 98.1 F 117 H 36 H 114/53 L 98 10/16/17 16:00 10/16/17 16:00 10/16/17 18:00 10/16/17 17:43 10/16/17 18:00 Intake & Output 10/15/17 10/16/17 10/17/17 06:59 06:59 06:59 Intake Total 466 125 Output Total 250 Balance 466 -125 Weight 61.4 kg General appearance: PRESENT: cooperative, disheveled, mild distress, well- developed, well-nourished Head exam: PRESENT: atraumatic, normocephalic Eye exam: PRESENT: conjunctiva pale, EOMI, PERRLA. ABSENT: nystagmus, periorbital swelling, scleral icterus Mouth exam: PRESENT: moist, neck supple, tongue midline, other - no plaques or patches min erythema Teeth exam: PRESENT: other - Several blackened teeth Throat exam: PRESENT: post pharyngeal erythema - minimal Neck exam: ABSENT: carotid bruit, JVD, lymphadenopathy, thyromegaly, tracheal deviation, tracheostomy Respiratory exam: PRESENT: prolonged expiratory phas, rhonchi, wheezes. ABSENT : stridor, unlabored Cardiovascular exam: PRESENT: RRR, +S1, +S2 Pulses: PRESENT: normal radial pulses GI/Abdominal exam: PRESENT: normal bowel sounds, soft Extremities exam: ABSENT: calf tenderness, clubbing, joint swelling, +1 edema Musculoskeletal exam: ABSENT: deformity, dislocation Neurological exam: PRESENT: alert, awake Psychiatric exam: PRESENT: anxious, normal mood Skin exam: PRESENT: dry, warm Results Laboratory Results: 10/16/17 06:08 10/16/17 06:08 10/16/17 10/16/17 10/16/17 00:12 00:12 06:08 WBC 21.6 H 21.0 H RBC 4.28 4.42 Hgb 13.2 13.7 Hct 38.5 40.1 MCV 90 91 MCH 30.8 30.9 MCHC 34.2 34.1 RDW 14.6 H 14.5 H Plt Count 293 269 Seg Neutrophils % Not Reportable Not Reportable Lymphocytes % Not Reportable Not Reportable Monocytes % Not Reportable Not Reportable Eosinophils % Not Reportable Not Reportable Basophils % Not Reportable Not Reportable Absolute Neutrophils Not Reportable Not Reportable Absolute Lymphocytes Not Reportable Not Reportable Absolute Monocytes Not Reportable Not Reportable Absolute Eosinophils Not Reportable Not Reportable Absolute Basophils Not Reportable Not Reportable Retic Count (auto) 2.44 Absolute Retic 0.104 Carbonic Acid HCO3/H2CO3 Ratio ABG pH ABG pCO2 ABG pO2 ABG HCO3 ABG O2 Saturation ABG Base Excess FiO2 Sodium Potassium Chloride Carbon Dioxide Anion Gap BUN Creatinine Est GFR ( Amer) Est GFR (Non-Af Amer) Glucose Calcium Iron 15.8 L TIBC 414 % Saturation 4 Ferritin 38.90 Vitamin B12 584.0 Folate > 20.00 10/16/17 10/16/17 06:08 13:40 WBC RBC Hgb Hct MCV MCH MCHC RDW Plt Count Seg Neutrophils % Lymphocytes % Monocytes % Eosinophils % Basophils % Absolute Neutrophils Absolute Lymphocytes Absolute Monocytes Absolute Eosinophils Absolute Basophils Retic Count (auto) Absolute Retic Carbonic Acid 0.84 L HCO3/H2CO3 Ratio 18:1 ABG pH 7.37 ABG pCO2 27.8 L ABG pO2 79.0 L ABG HCO3 15.9 L ABG O2 Saturation 95.6 ABG Base Excess -7.8 FiO2 3L Sodium 143.3 Potassium 4.5 Chloride 113 H Carbon Dioxide 16 L Anion Gap 14 BUN 4 L Creatinine 0.48 L Est GFR ( Amer) > 60 Est GFR (Non-Af Amer) > 60 Glucose 116 H Calcium 9.3 Iron TIBC % Saturation Ferritin Vitamin B12 Folate Impressions: Chest X-Ray 10/15/17 12:32 IMPRESSION: NO ACUTE RADIOGRAPHIC FINDING IN THE CHEST. Assessment & Plan - Diagnosis (1) ACUTE ASTHMA ATTACK Is this a current diagnosis for this admission?: Yes Plan: Generic Name Dose Route Start Last Admin Trade Name Freq PRN Reason Stop Dose Admin Methylprednisolone Sodium Succinate 125 mg 10/16/17 06:00 10/16/17 13:20 Solu-Medrol Inj/Pf 125 Mg/2 Ml Sdv IV 11/15/17 05:59 125 mg Q8 AFSHIN Albuterol/Ipratropium 3 ml 10/15/17 20:00 10/16/17 13:23 Duoneb 3 Ml Ampul NEB 11/14/17 19:59 3 ml RTQ6 AFSHIN Fluticasone Propionate 2 spray 10/15/17 22:00 06/26/18 09:31 Flonase Nasal Girard 50 Mcg/Girard 16 Gm NASL 11/14/17 21:59 Not Given Q12 AFSHIN add pulmicort singular theophyline - Time Total Critical Time (Minutes): 0
[2017-10-16] MEDS ORDERED: THEOPHYLLINE ANHYDROUS 300 MG TAB.SR.12H PO ONE (19:30)
[2017-10-16] MEDS ORDERED: MONTELUKAST SODIUM 10 MG TABLET PO ONE (19:30)
[2017-10-16] MEDS: BUDESONIDE NEB 0.5 MG/2 ML AMPUL NEB SCH (19:32)
[2017-10-16] MEDS ORDERED: CHLORPHENIRAMINE MALEATE 4 MG TABLET PO ONE (23:01)
[2017-10-16 23:16] LABS: ARTERIAL BLOOD BASE EXCESS -7.6 mmol/L; ARTERIAL BLOOD H2CO3 0.65 mmol/L (1.05-1.35); ARTERIAL BLOOD HCO3 14.4 mmol/L (20-26); ARTERIAL BLOOD PCO2 21.6 mmHg (35-45); ARTERIAL BLOOD PH 7.44 (7.35-7.45); ARTERIAL BLOOD PO2 85.3 mmHg (80-100); ARTERIAL BLOOD TOTAL CO2 15.1 mmol/L (21-25)
[2017-10-16 23:17] LABS: ARTERIAL BLOOD FIO2 4L
[2017-10-16] MEDS: GUAIFENESIN/D-METHORPHAN (200-20 MG) SYRUP 10 ML PO SCH (23:34)
[2017-10-17] MEDS ORDERED: CHLORPHENIRAMINE MALEATE 4 MG TABLET ONE (00:17)
[2017-10-17] MEDS: MAGNESIUM SULFATE/D5W 1 GM/100 ML RTUPB IV SCH (01:28)
[2017-10-17] MEDS: IPRATROPIUM/ALBUTEROL 0.5-2.5 MG/3 ML AMPUL NEB SCH ×4 (02:00→21:29)
[2017-10-17] MEDS ORDERED: LORAZEPAM INJ 2 MG/1 ML VIAL ONE (02:08)
[2017-10-17] MEDS ORDERED: LORAZEPAM INJ 2 MG/1 ML VIAL IV ONE ×2 (02:30→08:00)
[2017-10-17 04:09] LABS: ARTERIAL BLOOD BASE EXCESS -9.6 mmol/L; ARTERIAL BLOOD H2CO3 0.61 mmol/L (1.05-1.35); ARTERIAL BLOOD HCO3 12.8 mmol/L (20-26); ARTERIAL BLOOD O2 SATURATION 97.3 % (94-98); ARTERIAL BLOOD PH 7.42 (7.35-7.45); ARTERIAL BLOOD PO2 91.8 mmHg (80-100); ARTERIAL BLOOD TOTAL CO2 13.4 mmol/L (21-25)
[2017-10-17 04:10] LABS: ARTERIAL BLOOD FIO2 4L
[2017-10-17 04:12] LABS: ARTERIAL BLOOD PCO2 20.4 mmHg (35-45)
[2017-10-17 04:15] LABS: ABSOLUTE MONOCYTES (AUTO) 0.5 10^3/uL (0.1-1.4); ABSOLUTE NEUT (AUTO) 17.6 10^3/uL (1.7-8.2); BASOPHILS % (AUTO) 0.1 % (0-2); EOSINOPHILS % (AUTO) 0.1 % (0-6); HEMATOCRIT 33.7 % (36.0-47.0); LYMPHOCYTES % (AUTO) 5.2 % (13-45); MEAN CORPUSCULAR HEMOGLOBIN 30.4 pg (27.0-33.4); MEAN CORPUSCULAR HGB CONC 34.2 g/dL (32.0-36.0); MEAN CORPUSCULAR VOLUME 89 fl (80-97); MONOCYTES % (AUTO) 2.7 % (3-13); PLATELET COUNT 247 10^3/uL (150-450); RED CELL DISTRIBUTION WIDTH 14.5 % (11.5-14.0); SEGMENTED NEUTROPHILS % (AUTO) 91.9 % (42-78); TOTAL CELLS COUNTED % (AUTO) 100 %; WHITE BLOOD COUNT 19.1 10^3/uL (4.0-10.5)
[2017-10-17 04:17] LABS: HEMOGLOBIN 11.5 g/dL (12.0-15.5)
[2017-10-17 04:28] LABS: ANION GAP 10 (5-19); BLOOD UREA NITROGEN 5 mg/dL (7-20); CARBON DIOXIDE 16 mmol/L (22-30); CHLORIDE 115 mmol/L (98-107); GLUCOSE 109 mg/dL (75-110); POTASSIUM 3.9 mmol/L (3.6-5.0)
[2017-10-17] MEDS: GUAIFENESIN/D-METHORPHAN (200-20 MG) SYRUP 10 ML PO SCH ×4 (05:58→23:32)
[2017-10-17] MEDS: METHYLPREDNISOLONE INJ 125 MG/2 ML SDV IV SCH ×3 (05:59→21:56)
[2017-10-17] MEDS: HEPARIN SOD (PORCINE) 5,000 UNIT/ML 1 ML SYRINGE SUBCUT SCH ×3 (07:16→21:56)
[2017-10-17] MEDS ORDERED: RACEPINEPHRINE HCL 2.25% NEB 0.5 ML AMPUL NEB ONE (08:26)
[2017-10-17] MEDS ORDERED: BENZONATATE 100 MG CAPSULE PO PRN (08:26)
[2017-10-17] MEDS: BUDESONIDE NEB 0.5 MG/2 ML AMPUL NEB SCH ×2 (08:40→21:28)
[2017-10-17] MEDS ORDERED: PROPOFOL 1,000 MG/100 ML INFUS..BTL IV ONE ×2 (09:18→11:10)
[2017-10-17] MEDS: IPRATROPIUM/ALBUTEROL 0.5-2.5 MG/3 ML AMPUL NEB PRN ×2 (09:43→16:29)
[2017-10-17] MEDS ORDERED: MIDAZOLAM HCL 50 MG/100 ML RTUINJ ONE (09:47)
--- NOTE | 2017-10-17 09:56 | PDOC PROGRESS REPORT ---
Subjective Progress Note for:: 10/17/17 Subjective:: Pt has been placed on a ventilator. Reason For Visit: ASTHMA EXACERBATION 18 WKS Physical Exam - Physical Exam Vital Signs: Temp Pulse Resp BP Pulse Ox 98.2 F 104 H 39 H 97/52 L 98 10/17/17 07:52 10/17/17 08:40 10/17/17 08:40 10/17/17 07:52 10/17/17 08:40 Intake & Output 10/16/17 10/17/17 10/18/17 06:59 06:59 06:59 Intake Total 466 1992 Output Total 850 Balance 466 1142 Weight 61.4 kg 61 kg Result Laboratory Results: 10/17/17 03:58 10/17/17 03:58 10/16/17 10/16/17 10/17/17 13:40 23:10 03:40 WBC RBC Hgb Hct MCV MCH MCHC RDW Plt Count Seg Neutrophils % Lymphocytes % Monocytes % Eosinophils % Basophils % Absolute Neutrophils Absolute Lymphocytes Absolute Monocytes Absolute Eosinophils Absolute Basophils Carbonic Acid 0.84 L 0.65 L Cancelled HCO3/H2CO3 Ratio 18:1 22:1 Cancelled ABG pH 7.37 7.44 Cancelled ABG pCO2 27.8 L 21.6 L Cancelled ABG pO2 79.0 L 85.3 Cancelled ABG HCO3 15.9 L 14.4 L Cancelled ABG O2 Saturation 95.6 97.0 Cancelled ABG Base Excess -7.8 -7.6 Cancelled FiO2 3L 4L Cancelled Sodium Potassium Chloride Carbon Dioxide Anion Gap BUN Creatinine Est GFR ( Amer) Est GFR (Non-Af Amer) Glucose Calcium 10/17/17 10/17/17 10/17/17 03:58 03:58 04:02 WBC 19.1 H RBC 3.80 Hgb 11.5 L D Hct 33.7 L MCV 89 MCH 30.4 MCHC 34.2 RDW 14.5 H Plt Count 247 Seg Neutrophils % 91.9 H Lymphocytes % 5.2 L Monocytes % 2.7 L Eosinophils % 0.1 Basophils % 0.1 Absolute Neutrophils 17.6 H Absolute Lymphocytes 1.0 Absolute Monocytes 0.5 Absolute Eosinophils 0.0 Absolute Basophils 0.0 Carbonic Acid 0.61 L HCO3/H2CO3 Ratio 20:1 ABG pH 7.42 ABG pCO2 20.4 L* ABG pO2 91.8 ABG HCO3 12.8 L ABG O2 Saturation 97.3 ABG Base Excess -9.6 FiO2 4L Sodium 141.0 Potassium 3.9 Chloride 115 H Carbon Dioxide 16 L Anion Gap 10 BUN 5 L Creatinine 0.47 L Est GFR ( Amer) > 60 Est GFR (Non-Af Amer) > 60 Glucose 109 Calcium 8.0 L Impressions: Chest X-Ray 10/15/17 12:32 IMPRESSION: NO ACUTE RADIOGRAPHIC FINDING IN THE CHEST. Assessment & Plan - Diagnosis (1) ACUTE ASTHMA ATTACK Is this a current diagnosis for this admission?: Yes Plan: The pt is being treated for the asthma by ICU. The fetus should do well as long as O2 sats can be maintained above 95%. All normal measures for the asthma should be taken for the benefit of pt and fetus and we should not limit beneficial treatments because of the . If there are questions from the ICU staff please call.
[2017-10-17] MEDS ORDERED: THEOPHYLLINE ANHYDROUS 300 MG TAB.SR.12H PO SCH (10:00)
--- NOTE | 2017-10-17 10:42 | RADIOLOGY REPORT (SQ) ---
EXAM DESCRIPTION: CHEST SINGLE VIEW COMPLETED DATE/TIME: 10/17/2017 10:09 am REASON FOR STUDY: ET and NG tube Placement COMPARISON: 10/15/2017 EXAM PARAMETERS: NUMBER OF VIEWS: One view TECHNIQUE: Single frontal radiograph of the chest. RADIATION DOSE: N/A LIMITATIONS: None. FINDINGS: TEMPORARY SUPPORT DEVICES:ETT in expected location. NG tube courses below the quan-diaphr agm in to the stomach. LUNGS AND PLEURA: Interval development of diffuse parenchymal opacities predominantly perihilar. No e ffusions. No masses. No pneumothorax. MEDIASTINUM AND HILAR STRUCTURES: No masses. Contour normal. HEART AND VASCULAR STRUCTURES: Heart normal in size. normal vascularity. Aorta normal for age. BONES: No acute findings. OTHER: No other significant finding. IMPRESSION: Interval development of diffuse perihilar parenchymal opacities. SUPPORT DEVICE(S) IN EXPECTED LOCATIONS. TECHNICAL DOCUMENTATION: JOB ID: [id number] [employer]- All Rights Reserved Reading location - IP/workstation name: [email or web address]
[2017-10-17] MEDS: DOCUSATE SODIUM 100 MG CAPSULE PO SCH ×2 (11:05→17:36)
[2017-10-17] MEDS: FLUTICASONE NASAL SPRAY 50 MCG/SPRY 120 SPRAY/16 GM NASL SCH ×2 (11:06→21:58)
[2017-10-17] MEDS: LORATADINE 10 MG TABLET PO SCH (11:09)
[2017-10-17] MEDS: FAMOTIDINE 20 MG TABLET PO SCH ×2 (11:11→21:56)
[2017-10-17] MEDS: NORMAL SALINE 500 ML with ROCURONIUM BROMIDE 500 MG IV PRN ×2 (11:13)
[2017-10-17] MEDS: MIDAZOLAM HCL 50 MG/100 ML RTUINJ IV PRN ×4 (11:13→22:50)
[2017-10-17 11:17] LABS: ARTERIAL BLOOD HCO3 16.9 mmol/L (20-26); ARTERIAL BLOOD O2 SATURATION 97.4 % (94-98); ARTERIAL BLOOD PCO2 36.5 mmHg (35-45); ARTERIAL BLOOD PH 7.28 (7.35-7.45); ARTERIAL BLOOD PO2 108.5 mmHg (80-100)
[2017-10-17 11:18] LABS: ARTERIAL BLOOD FIO2 40%
[2017-10-17] MEDS: NORMAL SALINE 1000 ML 1,000 ML IV PRN ×2 (11:25→17:42)
[2017-10-17] MEDS ORDERED: METOPROLOL TARTRATE PF/INJ 5 MG/5 ML SDV IV ONE ×2 (12:00→18:00)
[2017-10-17 13:24] LABS: ARTERIAL BLOOD BASE EXCESS -8.3 mmol/L; ARTERIAL BLOOD H2CO3 0.94 mmol/L (1.05-1.35); ARTERIAL BLOOD HCO3 16.4 mmol/L (20-26); ARTERIAL BLOOD O2 SATURATION 97.7 % (94-98); ARTERIAL BLOOD PCO2 31.1 mmHg (35-45); ARTERIAL BLOOD PH 7.34 (7.35-7.45); ARTERIAL BLOOD PO2 106.4 mmHg (80-100); ARTERIAL BLOOD TOTAL CO2 17.3 mmol/L (21-25)
[2017-10-17 13:26] LABS: ARTERIAL BLOOD FIO2 40%
[2017-10-17] MEDS: METOPROLOL TARTRATE PF/INJ 5 MG/5 ML SDV IV PRN (14:31)
[2017-10-17] MEDS ORDERED: SUCCINYLCHOLINE CHLORIDE INJ 200 MG/10 ML VIAL ONE (15:00)
--- NOTE | 2017-10-17 15:35 | PDOC PROGRESS REPORT ---
Subjective Subjective:: This is 2 para 89 years old female patient admitted with asthma exacerbation. Patient has been on high-dose steroids 125 mg Solu-Medrol , DuoNeb, Pulmicort and she has gotten several doses of magnesium sulfate despite this treatment patient continues to have tachypnea and also her chest is full of diffuse wheezing. Yesterday patient transferred to ICU. This morning I evaluated her chest tachypneic in the range of 35-[address] Watts decided to intubate her. Reason For Visit: ASTHMA EXACERBATION 18 WKS Physical Exam Vital Signs: Temp Pulse Resp BP Pulse Ox 99.3 F 108 H 22 H 109/65 98 10/17/17 14:00 10/17/17 14:00 10/17/17 14:15 10/17/17 14:15 10/17/17 14:15 Intake & Output 10/16/17 10/17/17 10/18/17 06:59 06:59 06:59 Intake Total 466 1992 Output Total 850 185 Balance 466 1142 -185 Weight 61.4 kg 61 kg General appearance: PRESENT: severe distress Head exam: PRESENT: atraumatic Eye exam: PRESENT: conjunctiva pink Mouth exam: PRESENT: dry mucosa Neck exam: ABSENT: carotid bruit, JVD, lymphadenopathy, thyromegaly Respiratory exam: PRESENT: wheezes Cardiovascular exam: PRESENT: tachycardia Results Laboratory Results: 10/17/17 03:58 10/17/17 03:58 10/16/17 10/17/17 10/17/17 23:10 03:40 03:58 WBC 19.1 H RBC 3.80 Hgb 11.5 L D Hct 33.7 L MCV 89 MCH 30.4 MCHC 34.2 RDW 14.5 H Plt Count 247 Seg Neutrophils % 91.9 H Lymphocytes % 5.2 L Monocytes % 2.7 L Eosinophils % 0.1 Basophils % 0.1 Absolute Neutrophils 17.6 H Absolute Lymphocytes 1.0 Absolute Monocytes 0.5 Absolute Eosinophils 0.0 Absolute Basophils 0.0 Carbonic Acid 0.65 L Cancelled HCO3/H2CO3 Ratio 22:1 Cancelled ABG pH 7.44 Cancelled ABG pCO2 21.6 L Cancelled ABG pO2 85.3 Cancelled ABG HCO3 14.4 L Cancelled ABG O2 Saturation 97.0 Cancelled ABG Base Excess -7.6 Cancelled FiO2 4L Cancelled Sodium Potassium Chloride Carbon Dioxide Anion Gap BUN Creatinine Est GFR ( Amer) Est GFR (Non-Af Amer) Glucose Calcium Triglycerides 10/17/17 10/17/17 10/17/17 03:58 03:58 04:02 WBC RBC Hgb Hct MCV MCH MCHC RDW Plt Count Seg Neutrophils % Lymphocytes % Monocytes % Eosinophils % Basophils % Absolute Neutrophils Absolute Lymphocytes Absolute Monocytes Absolute Eosinophils Absolute Basophils Carbonic Acid 0.61 L HCO3/H2CO3 Ratio 20:1 ABG pH 7.42 ABG pCO2 20.4 L* ABG pO2 91.8 ABG HCO3 12.8 L ABG O2 Saturation 97.3 ABG Base Excess -9.6 FiO2 4L Sodium 141.0 Potassium 3.9 Chloride 115 H Carbon Dioxide 16 L Anion Gap 10 BUN 5 L Creatinine 0.47 L Est GFR ( Amer) > 60 Est GFR (Non-Af Amer) > 60 Glucose 109 Calcium 8.0 L Triglycerides 118 10/17/17 10/17/17 10:55 13:05 WBC RBC Hgb Hct MCV MCH MCHC RDW Plt Count Seg Neutrophils % Lymphocytes % Monocytes % Eosinophils % Basophils % Absolute Neutrophils Absolute Lymphocytes Absolute Monocytes Absolute Eosinophils Absolute Basophils Carbonic Acid 1.10 0.94 L HCO3/H2CO3 Ratio 15:1 17:1 ABG pH 7.28 L 7.34 L ABG pCO2 36.5 31.1 L ABG pO2 108.5 H 106.4 H ABG HCO3 16.9 L 16.4 L ABG O2 Saturation 97.4 97.7 ABG Base Excess -9.0 -8.3 FiO2 40% 40% Sodium Potassium Chloride Carbon Dioxide Anion Gap BUN Creatinine Est GFR ( Amer) Est GFR (Non-Af Amer) Glucose Calcium Triglycerides Impressions: Chest X-Ray 10/17/17 09:28 IMPRESSION: Interval development of diffuse perihilar parenchymal opacities. SUPPORT DEVICE(S) IN EXPECTED LOCATIONS. Assessment & Plan - Diagnosis (1) ACUTE ASTHMA ATTACK Is this a current diagnosis for this admission?: Yes Plan: Patient failed to respond to appropriate management and has to be intubated. (2) Status asthmaticus Is this a current diagnosis for this admission?: Yes Plan: Patient intubated because she failed to respond to the regular treatment (3) First trimester Is this a current diagnosis for this admission?: Yes Plan: Follow-up [facility] - Time Time Spent with patient: 35 or more minutes
[2017-10-17 16:42] LABS: ARTERIAL BLOOD H2CO3 0.82 mmol/L (1.05-1.35); ARTERIAL BLOOD O2 SATURATION 96.7 % (94-98); ARTERIAL BLOOD PCO2 27.3 mmHg (35-45); ARTERIAL BLOOD PH 7.36 (7.35-7.45); ARTERIAL BLOOD PO2 90.2 mmHg (80-100); ARTERIAL BLOOD TOTAL CO2 15.8 mmol/L (21-25)
[2017-10-17 16:43] LABS: ARTERIAL BLOOD FIO2 40%
[2017-10-17] MEDS: PROPOFOL 1,000 MG/100 ML INFUS..BTL IV PRN ×2 (17:38→21:58)
[2017-10-17] MEDS: AMPICILLIN SODIUM/SULBACTAM NA 1.5 GM in NORMAL SALINE 50 ML IV SCH ×2 (18:01→23:33)
[2017-10-18] MEDS: NORMAL SALINE 500 ML with ROCURONIUM BROMIDE 500 MG IV PRN ×2 (01:45)
[2017-10-18] MEDS: PROPOFOL 1,000 MG/100 ML INFUS..BTL IV PRN ×2 (01:46→11:05)
[2017-10-18] MEDS: IPRATROPIUM/ALBUTEROL 0.5-2.5 MG/3 ML AMPUL NEB SCH ×2 (02:54→08:37)
[2017-10-18] MEDS: METOPROLOL TARTRATE PF/INJ 5 MG/5 ML SDV IV PRN ×2 (03:50→09:31)
[2017-10-18] MEDS: MIDAZOLAM HCL 50 MG/100 ML RTUINJ IV PRN ×2 (03:51→10:47)
[2017-10-18] MEDS: NORMAL SALINE 1000 ML 1,000 ML IV PRN (04:18)
[2017-10-18 04:19] LABS: ABSOLUTE LYMPHOCYTES (AUTO) 1.2 10^3/uL (0.5-4.7); ABSOLUTE MONOCYTES (AUTO) 0.5 10^3/uL (0.1-1.4); ABSOLUTE NEUT (AUTO) 9.7 10^3/uL (1.7-8.2); BASOPHILS % (AUTO) 0.1 % (0-2); EOSINOPHILS % (AUTO) 0.1 % (0-6); HEMATOCRIT 32.1 % (36.0-47.0); HEMOGLOBIN 10.9 g/dL (12.0-15.5); LYMPHOCYTES % (AUTO) 10.9 % (13-45); MEAN CORPUSCULAR HEMOGLOBIN 30.8 pg (27.0-33.4); MEAN CORPUSCULAR VOLUME 91 fl (80-97); MONOCYTES % (AUTO) 4.1 % (3-13); PLATELET COUNT 250 10^3/uL (150-450); RED BLOOD COUNT 3.54 10^6/uL (3.72-5.28); RED CELL DISTRIBUTION WIDTH 14.4 % (11.5-14.0); SEGMENTED NEUTROPHILS % (AUTO) 84.8 % (42-78); TOTAL CELLS COUNTED % (AUTO) 100 %; WHITE BLOOD COUNT 11.5 10^3/uL (4.0-10.5)
[2017-10-18 04:34] LABS: ALANINE AMINOTRANSFERASE 31 U/L (9-52); ALBUMIN 2.9 g/dL (3.5-5.0); ALKALINE PHOSPHATASE 64 U/L (38-126); ANION GAP 9 (5-19); ASPARTATE AMINO TRANSFERASE 20 U/L (14-36); BILIRUBIN,DIRECT 0.3 mg/dL (0.0-0.4); BILIRUBIN,TOTAL 0.3 mg/dL (0.2-1.3); BLOOD UREA NITROGEN 7 mg/dL (7-20); CALCIUM 8.1 mg/dL (8.4-10.2); CARBON DIOXIDE 17 mmol/L (22-30); CHLORIDE 117 mmol/L (98-107); GLUCOSE 111 mg/dL (75-110); PHOSPHORUS 2.7 mg/dL (2.5-4.5); POTASSIUM 4.3 mmol/L (3.6-5.0); TOTAL PROTEIN 5.6 g/dL (6.3-8.2)
[2017-10-18] MEDS: GUAIFENESIN/D-METHORPHAN (200-20 MG) SYRUP 10 ML PO SCH (05:28)
[2017-10-18] MEDS: HEPARIN SOD (PORCINE) 5,000 UNIT/ML 1 ML SYRINGE SUBCUT SCH (05:29)
[2017-10-18] MEDS: AMPICILLIN SODIUM/SULBACTAM NA 1.5 GM in NORMAL SALINE 50 ML IV SCH (05:29)
[2017-10-18] MEDS: METHYLPREDNISOLONE INJ 125 MG/2 ML SDV IV SCH (05:29)
[2017-10-18 05:56] LABS: ARTERIAL BLOOD BASE EXCESS -7.9 mmol/L; ARTERIAL BLOOD H2CO3 0.88 mmol/L (1.05-1.35); ARTERIAL BLOOD HCO3 16.2 mmol/L (20-26); ARTERIAL BLOOD O2 SATURATION 97.5 % (94-98); ARTERIAL BLOOD PCO2 29.1 mmHg (35-45); ARTERIAL BLOOD PH 7.36 (7.35-7.45); ARTERIAL BLOOD PO2 100.3 mmHg (80-100); ARTERIAL BLOOD TOTAL CO2 17.1 mmol/L (21-25)
[2017-10-18 06:04] LABS: ARTERIAL BLOOD FIO2 40%
--- NOTE | 2017-10-18 07:56 | RADIOLOGY REPORT (SQ) ---
EXAM DESCRIPTION: CHEST SINGLE VIEW COMPLETED DATE/TIME: 10/18/2017 6:24 am REASON FOR STUDY: resp failure COMPARISON: Chest films 07/08/2016, 07/17/2016, 10/15/2017, 10/17/2017 EXAM PARAMETERS: NUMBER OF VIEWS: One view. TECHNIQUE: Single frontal radiographic view of the chest acquired. RADIATION DOSE: NA LIMITATIONS: None. FINDINGS: LUNGS AND PLEURA: Patchy right perihilar and left retrocardiac airspace disease seen on has partially cleared. No pneumothorax. No pleural effusion. MEDIASTINUM AND HILAR STRUCTURES: No masses. Contour normal. HEART AND VASCULAR STRUCTURES: Heart normal in size. Normal vasculature. BONES: No acute findings. HARDWARE: Endotracheal tube tip 3 cm above the justin. Nasogastric tube tip and side port below the hemidiaphragms. OTHER: No other significant finding. IMPRESSION: Tubes in appropriate position Partial clearing of the bilateral patchy airspace disease. TECHNICAL DOCUMENTATION: JOB ID: [id number] [employer]- All Rights Reserved Reading location - IP/workstation name: [email or web address]
[2017-10-18] MEDS: BUDESONIDE NEB 0.5 MG/2 ML AMPUL NEB SCH (08:37)
[2017-10-18] MEDS: DOCUSATE SODIUM 100 MG CAPSULE PO SCH (09:30)
[2017-10-18] MEDS: FAMOTIDINE 20 MG TABLET PO SCH (09:31)
[2017-10-18] MEDS: LORATADINE 10 MG TABLET PO SCH (09:31)
--- NOTE | 2017-10-18 10:01 | PDOC TRANSFER SUMMARY ---
General Admission Date/PCP: 10/15/17 17:56 Admission Date: 10/18/17 Resuscitation Status: Full Code - Transfer Diagnosis (1) ACUTE ASTHMA ATTACK Is this a current diagnosis for this admission?: Yes (2) Status asthmaticus Is this a current diagnosis for this admission?: Yes (3) First trimester Is this a current diagnosis for this admission?: Yes - Transfer Medications Home Medications: Albuterol Sulfate [Proair HFA] 2 puff IH Q4HP PRN 10/15/17 Transfer Medications: Current Medications Acetaminophen (Tylenol 325 Mg Tablet) 650 mg PO Q4HP PRN PRN Reason: FOR PAIN OR TEMP Stop: 11/14/17 19:19 Last Admin: 10/16/17 15:55 Dose: 650 mg Al Hydrox/Mg Hydrox/Simethicone (Maalox Plus Susp 30 Udcup) 30 ml PO Q6HP PRN PRN Reason: HEARTBURN Stop: 11/14/17 19:19 Albuterol/Ipratropium (Duoneb 3 Ml Ampul) 3 ml NEB RTQ6 AFSHIN Stop: 11/14/17 19:59 Last Admin: 10/18/17 08:37 Dose: 3 ml Albuterol/Ipratropium (Duoneb 3 Ml Ampul) 3 ml NEB RTQ2HP PRN PRN Reason: SHORTNESS OF BREATH Stop: 11/15/17 14:06 Last Admin: 10/17/17 16:29 Dose: 3 ml Benzonatate (Tessalon Perles 100 Mg Capsule) 100 mg PO Q8HP PRN PRN Reason: COUGH Stop: 11/16/17 08:25 Last Admin: 10/17/17 08:35 Dose: 100 mg Budesonide (Pulmicort Neb 0.5 Mg/2 Ml Ampul) 0.5 mg NEB RTQ12 AFSHIN Stop: 11/15/17 19:59 Last Admin: 10/18/17 08:37 Dose: 0.5 mg Docusate Sodium (Colace 100 Mg Capsule) 100 mg PO BID AFSHIN Stop: 11/15/17 09:59 Last Admin: 10/18/17 09:30 Dose: 100 mg Famotidine (Pepcid 20 Mg Tablet) 20 mg PO Q12 [facility] Stop: 11/14/17 21:59 Last Admin: 10/18/17 09:31 Dose: 20 mg Fluticasone Propionate (Flonase Nasal Radiant 50 Mcg/Radiant 16 Gm) 2 spray NASL Q12 [facility] Stop: 11/14/17 21:59 Last Admin: 10/17/17 21:58 Dose: Not Given Guaifenesin/Dextromethorphan (Robitussin-Dm Syrup 10 Ml Udcup) 20 ml PO Q6 [facility] Stop: 11/16/17 00:00 Last Admin: 10/18/17 05:28 Dose: 20 ml Heparin Sodium (Porcine) (Heparin Inj 5,000 Units/Ml 1 Ml Syringe) 5,000 unit SUBCUT Q8 [facility] Stop: 11/14/17 21:59 Last Admin: 10/18/17 05:29 Dose: 5,000 unit Sodium Chloride (Nacl 0.9% 1000 Ml Iv Soln) 1,000 mls @ 125 mls/hr IV CONTINUOUS PRN PRN Reason: THIS MED IS NOT "PRN" Stop: 11/15/17 09:00 Last Admin: 10/18/17 04:18 Dose: 1,000 ml Midazolam HCl (Versed Rtu 50 Mg/100 Ml Premix Bag) 50 mg in 100 mls @ 0 mls/hr IV CONTINUOUS PRN; Protocol; Titrate PRN Reason: THIS MED IS NOT "PRN" Stop: 10/24/17 10:11 Last Admin: 10/18/17 03:51 Dose: 100 ml Rocuronium [place] 500 mg/ (Sodium Chloride) 500 mls @ 0 mls/hr IV CONTINUOUS PRN; Protocol; Titrate PRN Reason: THIS MED IS NOT "PRN" Stop: 11/16/17 10:11 Last Admin: 10/18/17 01:45 Dose: 500 mg Propofol (Diprivan Rtu 1000 Mg/100 Ml Inf.Bottle) 1,000 mg in 100 mls @ 0 mls/ hr IV CONTINUOUS PRN; Protocol; Titrate PRN Reason: THIS MED IS NOT "PRN" Stop: 11/16/17 12:22 Last Admin: 10/18/17 01:46 Dose: 100 ml Ampicillin Sodium/Sulbactam (Sodium 1.5 gm/ Sodium Chloride) 50 mls @ 50 mls/ hr IV Q6 [facility] Stop: 10/24/17 17:59 Last Admin: 10/18/17 05:29 Dose: 1.5 gm Loratadine (Claritin 10 Mg Tablet) 10 mg PO DAILY [facility] Stop: 11/15/17 09:59 Last Admin: 10/18/17 09:31 Dose: 10 mg Methylprednisolone Sodium Succinate (Solu-Medrol Inj/Pf 125 Mg/2 Ml Sdv) 125 mg IV Q8 [facility] Stop: 11/15/17 05:59 Last Admin: 10/18/17 05:29 Dose: 125 mg Metoprolol Tartrate (Lopressor Inj/Pf 5 Mg/5 Ml Sdv) 5 mg IV Q4HP PRN PRN Reason: FOR HR>120 Stop: 11/16/17 11:09 Last Admin: 10/18/17 09:31 Dose: 5 mg Theophylline (Bc-Dur 300 Mg Tab.Sr) 300 mg PO DAILY [facility] Stop: 11/16/17 09:59 Last Admin: 10/17/17 11:04 Dose: Not Given - Allergies Allergies/Adverse Reactions: No Known Allergies Allergy (Verified 10/15/17 12:01) Hospital Course Hospital Course: This is 22 years old female patient, 2 para 1 in her first trimester presented acute asthma exacerbation patient has been managed accordingly with bronchodilators and steroid and supplemental oxygen but she could not talk to come out of the attack later her conditions worsened and become status asthmaticus activity time patient transferred to ICU and on the next day patient intubated and put on mechanical ventilation. She has been followed by Dr. Watts ice maker who recommended transfer to a tertiary center for higher level of care. Physical Exam Vital Signs: Temp Pulse Resp BP Pulse Ox 99.3 F 114 H 22 H 120/76 100 10/18/17 08:00 10/18/17 08:37 10/18/17 08:37 10/18/17 08:00 10/18/17 08:37 Intake & Output 10/17/17 10/18/17 10/19/17 06:59 06:59 06:59 Intake Total 1992 4170 Output Total 850 780 40 Balance 1142 3390 -40 Weight 61 kg 63.4 kg General appearance: PRESENT: severe distress Head exam: PRESENT: atraumatic, normocephalic Eye exam: PRESENT: conjunctiva pink Mouth exam: PRESENT: dry mucosa Respiratory exam: PRESENT: crackles, wheezes Cardiovascular exam: PRESENT: tachycardia GI/Abdominal exam: PRESENT: normal bowel sounds, soft. ABSENT: distended, guarding, mass, organolmegaly, rebound, tenderness Results Laboratory Results: 10/18/17 03:59 10/18/17 03:59 10/17/17 10/17/17 10/17/17 03:58 10:55 13:05 WBC RBC Hgb Hct MCV MCH MCHC RDW Plt Count Seg Neutrophils % Lymphocytes % Monocytes % Eosinophils % Basophils % Absolute Neutrophils Absolute Lymphocytes Absolute Monocytes Absolute Eosinophils Absolute Basophils Carbonic Acid 1.10 0.94 L HCO3/H2CO3 Ratio 15:1 17:1 ABG pH 7.28 L 7.34 L ABG pCO2 36.5 31.1 L ABG pO2 108.5 H 106.4 H ABG HCO3 16.9 L 16.4 L ABG O2 Saturation 97.4 97.7 ABG Base Excess -9.0 -8.3 FiO2 40% 40% Sodium Potassium Chloride Carbon Dioxide Anion Gap BUN Creatinine Est GFR ( Amer) Est GFR (Non-Af Amer) Glucose Calcium Phosphorus Magnesium Total Bilirubin AST ALT Alkaline Phosphatase Total Protein Albumin Triglycerides 118 10/17/17 10/18/17 10/18/17 16:30 03:59 03:59 WBC 11.5 H RBC 3.54 L Hgb 10.9 L Hct 32.1 L MCV 91 MCH 30.8 MCHC 34.0 RDW 14.4 H Plt Count 250 Seg Neutrophils % 84.8 H Lymphocytes % 10.9 L Monocytes % 4.1 Eosinophils % 0.1 Basophils % 0.1 Absolute Neutrophils 9.7 H Absolute Lymphocytes 1.2 Absolute Monocytes 0.5 Absolute Eosinophils 0.0 Absolute Basophils 0.0 Carbonic Acid 0.82 L HCO3/H2CO3 Ratio 18:1 ABG pH 7.36 ABG pCO2 27.3 L ABG pO2 90.2 ABG HCO3 15.0 L ABG O2 Saturation 96.7 ABG Base Excess -9.0 FiO2 40% Sodium 143.0 Potassium 4.3 Chloride 117 H Carbon Dioxide 17 L Anion Gap 9 BUN 7 Creatinine 0.46 L Est GFR ( Amer) > 60 Est GFR (Non-Af Amer) > 60 Glucose 111 H Calcium 8.1 L Phosphorus 2.7 Magnesium 2.2 Total Bilirubin 0.3 AST 20 ALT 31 Alkaline Phosphatase 64 Total Protein 5.6 L Albumin 2.9 L Triglycerides 10/18/17 05:42 WBC RBC Hgb Hct MCV MCH MCHC RDW Plt Count Seg Neutrophils % Lymphocytes % Monocytes % Eosinophils % Basophils % Absolute Neutrophils Absolute Lymphocytes Absolute Monocytes Absolute Eosinophils Absolute Basophils Carbonic Acid 0.88 L HCO3/H2CO3 Ratio 18:1 ABG pH 7.36 ABG pCO2 29.1 L ABG pO2 100.3 H ABG HCO3 16.2 L ABG O2 Saturation 97.5 ABG Base Excess -7.9 FiO2 40% Sodium Potassium Chloride Carbon Dioxide Anion Gap BUN Creatinine Est GFR ( Amer) Est GFR (Non-Af Amer) Glucose Calcium Phosphorus Magnesium Total Bilirubin AST ALT Alkaline Phosphatase Total Protein Albumin Triglycerides Impressions: Chest X-Ray 10/18/17 06:00 IMPRESSION: Tubes in appropriate position Partial clearing of the bilateral patchy airspace disease.
--- NOTE | 2017-10-18 10:54 | PDOC PROGRESS REPORT ---
Subjective Progress Note for:: 10/17/17 Subjective:: Exhausted Reason For Visit: ASTHMA EXACERBATION 18 WKS Physical Exam Vital Signs: Temp Pulse Resp BP Pulse Ox 98.2 F 90 43 H 97/52 L 98 10/17/17 07:52 10/17/17 07:52 10/17/17 07:52 10/17/17 07:52 10/17/17 07:52 Intake & Output 10/16/17 10/17/17 10/18/17 06:59 06:59 06:59 Intake Total 466 1992 Output Total 850 Balance 466 1142 Weight 61.4 kg 61 kg General appearance: PRESENT: cooperative, disheveled, mild distress, well- developed, well-nourished Head exam: PRESENT: atraumatic, normocephalic Eye exam: PRESENT: conjunctiva pale, EOMI. ABSENT: nystagmus, periorbital swelling, scleral icterus Mouth exam: PRESENT: dry mucosa, neck supple, tongue midline Neck exam: ABSENT: carotid bruit, JVD, lymphadenopathy, thyromegaly, tracheal deviation, tracheostomy Respiratory exam: PRESENT: decreased breath sounds, prolonged expiratory phas, rhonchi, symmetrical, tachypnea, wheezes. ABSENT: stridor, unlabored Cardiovascular exam: PRESENT: RRR, +S1, +S2, tachycardia Pulses: PRESENT: normal radial pulses GI/Abdominal exam: PRESENT: normal bowel sounds, soft. ABSENT: tenderness Extremities exam: PRESENT: full ROM, joint swelling, pedal edema. ABSENT: clubbing Musculoskeletal exam: PRESENT: full ROM. ABSENT: deformity, dislocation Neurological exam: PRESENT: alert, awake Psychiatric exam: PRESENT: flat affect Skin exam: PRESENT: dry, warm Results Laboratory Results: 10/17/17 03:58 10/17/17 03:58 10/16/17 10/16/17 10/17/17 13:40 23:10 03:40 WBC RBC Hgb Hct MCV MCH MCHC RDW Plt Count Seg Neutrophils % Lymphocytes % Monocytes % Eosinophils % Basophils % Absolute Neutrophils Absolute Lymphocytes Absolute Monocytes Absolute Eosinophils Absolute Basophils Carbonic Acid 0.84 L 0.65 L Cancelled HCO3/H2CO3 Ratio 18:1 22:1 Cancelled ABG pH 7.37 7.44 Cancelled ABG pCO2 27.8 L 21.6 L Cancelled ABG pO2 79.0 L 85.3 Cancelled ABG HCO3 15.9 L 14.4 L Cancelled ABG O2 Saturation 95.6 97.0 Cancelled ABG Base Excess -7.8 -7.6 Cancelled FiO2 3L 4L Cancelled Sodium Potassium Chloride Carbon Dioxide Anion Gap BUN Creatinine Est GFR ( Amer) Est GFR (Non-Af Amer) Glucose Calcium 10/17/17 10/17/17 10/17/17 03:58 03:58 04:02 WBC 19.1 H RBC 3.80 Hgb 11.5 L D Hct 33.7 L MCV 89 MCH 30.4 MCHC 34.2 RDW 14.5 H Plt Count 247 Seg Neutrophils % 91.9 H Lymphocytes % 5.2 L Monocytes % 2.7 L Eosinophils % 0.1 Basophils % 0.1 Absolute Neutrophils 17.6 H Absolute Lymphocytes 1.0 Absolute Monocytes 0.5 Absolute Eosinophils 0.0 Absolute Basophils 0.0 Carbonic Acid 0.61 L HCO3/H2CO3 Ratio 20:1 ABG pH 7.42 ABG pCO2 20.4 L* ABG pO2 91.8 ABG HCO3 12.8 L ABG O2 Saturation 97.3 ABG Base Excess -9.6 FiO2 4L Sodium 141.0 Potassium 3.9 Chloride 115 H Carbon Dioxide 16 L Anion Gap 10 BUN 5 L Creatinine 0.47 L Est GFR ( Amer) > 60 Est GFR (Non-Af Amer) > 60 Glucose 109 Calcium 8.0 L Impressions: Chest X-Ray 10/15/17 12:32 IMPRESSION: NO ACUTE RADIOGRAPHIC FINDING IN THE CHEST. Assessment & Plan - Diagnosis (1) ACUTE ASTHMA ATTACK Is this a current diagnosis for this admission?: Yes Plan: Patient getting progressively more tired intubate - Time Total Critical Time (Minutes): 40
--- NOTE | 2017-10-18 10:57 | PDOC PROGRESS REPORT ---
Subjective Progress Note for:: 10/18/17 Subjective:: Intubated very difficult to sedate Reason For Visit: ASTHMA EXACERBATION 18 WKS Physical Exam Vital Signs: Temp Pulse Resp BP Pulse Ox 99.3 F 122 H 22 H 109/72 98 10/18/17 06:00 10/18/17 02:55 10/18/17 06:15 10/18/17 06:15 10/18/17 06:15 Intake & Output 10/17/17 10/18/17 10/19/17 06:59 06:59 06:59 Intake Total 1991 4170 Output Total 850 780 Balance 1142 3390 Weight 61 kg 63.4 kg General appearance: PRESENT: no acute distress, well-developed, well-nourished. ABSENT: cooperative, disheveled Head exam: PRESENT: atraumatic, normocephalic Eye exam: PRESENT: conjunctiva pale, EOMI. ABSENT: nystagmus, periorbital swelling, scleral icterus Mouth exam: PRESENT: dry mucosa, neck supple, tongue midline, other - ET tube in place Teeth exam: PRESENT: other - Several blackened teeth Neck exam: ABSENT: carotid bruit, JVD, lymphadenopathy, thyromegaly, tracheal deviation, tracheostomy Respiratory exam: PRESENT: decreased breath sounds, prolonged expiratory phas, rhonchi, unlabored, wheezes. ABSENT: retraction, stridor Cardiovascular exam: PRESENT: RRR, +S1, +S2, tachycardia Pulses: PRESENT: normal radial pulses GI/Abdominal exam: PRESENT: normal bowel sounds, soft. ABSENT: tenderness Extremities exam: ABSENT: clubbing, joint swelling, pedal edema Musculoskeletal exam: ABSENT: deformity, dislocation Neurological exam: ABSENT: awake Skin exam: PRESENT: dry, warm Results Laboratory Results: 10/18/17 03:59 10/18/17 03:59 10/17/17 10/17/17 10/17/17 03:58 10:55 13:05 WBC RBC Hgb Hct MCV MCH MCHC RDW Plt Count Seg Neutrophils % Lymphocytes % Monocytes % Eosinophils % Basophils % Absolute Neutrophils Absolute Lymphocytes Absolute Monocytes Absolute Eosinophils Absolute Basophils Carbonic Acid 1.10 0.94 L HCO3/H2CO3 Ratio 15:1 17:1 ABG pH 7.28 L 7.34 L ABG pCO2 36.5 31.1 L ABG pO2 108.5 H 106.4 H ABG HCO3 16.9 L 16.4 L ABG O2 Saturation 97.4 97.7 ABG Base Excess -9.0 -8.3 FiO2 40% 40% Sodium Potassium Chloride Carbon Dioxide Anion Gap BUN Creatinine Est GFR ( Amer) Est GFR (Non-Af Amer) Glucose Calcium Phosphorus Magnesium Total Bilirubin AST ALT Alkaline Phosphatase Total Protein Albumin Triglycerides 118 10/17/17 10/18/17 10/18/17 16:30 03:59 03:59 WBC 11.5 H RBC 3.54 L Hgb 10.9 L Hct 32.1 L MCV 91 MCH 30.8 MCHC 34.0 RDW 14.4 H Plt Count 250 Seg Neutrophils % 84.8 H Lymphocytes % 10.9 L Monocytes % 4.1 Eosinophils % 0.1 Basophils % 0.1 Absolute Neutrophils 9.7 H Absolute Lymphocytes 1.2 Absolute Monocytes 0.5 Absolute Eosinophils 0.0 Absolute Basophils 0.0 Carbonic Acid 0.82 L HCO3/H2CO3 Ratio 18:1 ABG pH 7.36 ABG pCO2 27.3 L ABG pO2 90.2 ABG HCO3 15.0 L ABG O2 Saturation 96.7 ABG Base Excess -9.0 FiO2 40% Sodium 143.0 Potassium 4.3 Chloride 117 H Carbon Dioxide 17 L Anion Gap 9 BUN 7 Creatinine 0.46 L Est GFR ( Amer) > 60 Est GFR (Non-Af Amer) > 60 Glucose 111 H Calcium 8.1 L Phosphorus 2.7 Magnesium 2.2 Total Bilirubin 0.3 AST 20 ALT 31 Alkaline Phosphatase 64 Total Protein 5.6 L Albumin 2.9 L Triglycerides 10/18/17 05:42 WBC RBC Hgb Hct MCV MCH MCHC RDW Plt Count Seg Neutrophils % Lymphocytes % Monocytes % Eosinophils % Basophils % Absolute Neutrophils Absolute Lymphocytes Absolute Monocytes Absolute Eosinophils Absolute Basophils Carbonic Acid 0.88 L HCO3/H2CO3 Ratio 18:1 ABG pH 7.36 ABG pCO2 29.1 L ABG pO2 100.3 H ABG HCO3 16.2 L ABG O2 Saturation 97.5 ABG Base Excess -7.9 FiO2 40% Sodium Potassium Chloride Carbon Dioxide Anion Gap BUN Creatinine Est GFR ( Amer) Est GFR (Non-Af Amer) Glucose Calcium Phosphorus Magnesium Total Bilirubin AST ALT Alkaline Phosphatase Total Protein Albumin Triglycerides Impressions: Chest X-Ray 10/18/17 06:00 IMPRESSION: Tubes in appropriate position Partial clearing of the bilateral patchy airspace disease. Assessment & Plan - Diagnosis (1) ACUTE ASTHMA ATTACK Is this a current diagnosis for this admission?: Yes Plan: Patient various of difficult to sedate maxed out on propofol Versed discussed with sample hand ok to proceed with neuromuscular zackary - Time Total Critical Time (Minutes): 155 - Plan Summary Plan Summary: additional time speaking with family,OB-DERMATOLOGY PROCEDURAL PHYSICIAN ,pcp and at his request receiving Oceanographer Geological
--- NOTE | 2017-10-18 11:02 | PDOC PROGRESS REPORT ---
Subjective Progress Note for:: 10/18/17 Subjective:: Intubated And sedated Reason For Visit: ASTHMA EXACERBATION 18 WKS Physical Exam Vital Signs: Temp Pulse Resp BP Pulse Ox 99.3 F 114 H 22 H 109/72 100 10/18/17 06:00 10/18/17 08:37 10/18/17 08:37 10/18/17 06:15 10/18/17 08:37 Intake & Output 10/17/17 10/18/17 10/19/17 06:59 06:59 06:59 Intake Total 1991 4170 Output Total 850 780 Balance 1142 3390 Weight 61 kg 63.4 kg General appearance: PRESENT: disheveled, well-developed, well-nourished Head exam: PRESENT: atraumatic, normocephalic Eye exam: PRESENT: conjunctiva pale. ABSENT: EOMI, nystagmus, periorbital swelling, scleral icterus Mouth exam: PRESENT: dry mucosa, neck supple, tongue midline, other - ET tube in place Teeth exam: PRESENT: other Neck exam: ABSENT: carotid bruit, JVD, lymphadenopathy, thyromegaly, tracheal deviation, tracheostomy Respiratory exam: PRESENT: prolonged expiratory phas, rhonchi, wheezes. ABSENT : retraction, stridor Cardiovascular exam: PRESENT: RRR, +S1, +S2, tachycardia Pulses: PRESENT: normal radial pulses GI/Abdominal exam: PRESENT: diminished bowel sounds, soft Gentrourinary exam: PRESENT: indwelling catheter Extremities exam: ABSENT: clubbing, joint swelling Musculoskeletal exam: ABSENT: ambulatory, deformity, dislocation Neurological exam: ABSENT: awake Skin exam: PRESENT: dry, warm Results Laboratory Results: 10/18/17 03:59 10/18/17 03:59 10/17/17 10/17/17 10/17/17 03:58 10:55 13:05 WBC RBC Hgb Hct MCV MCH MCHC RDW Plt Count Seg Neutrophils % Lymphocytes % Monocytes % Eosinophils % Basophils % Absolute Neutrophils Absolute Lymphocytes Absolute Monocytes Absolute Eosinophils Absolute Basophils Carbonic Acid 1.10 0.94 L HCO3/H2CO3 Ratio 15:1 17:1 ABG pH 7.28 L 7.34 L ABG pCO2 36.5 31.1 L ABG pO2 108.5 H 106.4 H ABG HCO3 16.9 L 16.4 L ABG O2 Saturation 97.4 97.7 ABG Base Excess -9.0 -8.3 FiO2 40% 40% Sodium Potassium Chloride Carbon Dioxide Anion Gap BUN Creatinine Est GFR ( Amer) Est GFR (Non-Af Amer) Glucose Calcium Phosphorus Magnesium Total Bilirubin AST ALT Alkaline Phosphatase Total Protein Albumin Triglycerides 118 10/17/17 10/18/17 10/18/17 16:30 03:59 03:59 WBC 11.5 H RBC 3.54 L Hgb 10.9 L Hct 32.1 L MCV 91 MCH 30.8 MCHC 34.0 RDW 14.4 H Plt Count 250 Seg Neutrophils % 84.8 H Lymphocytes % 10.9 L Monocytes % 4.1 Eosinophils % 0.1 Basophils % 0.1 Absolute Neutrophils 9.7 H Absolute Lymphocytes 1.2 Absolute Monocytes 0.5 Absolute Eosinophils 0.0 Absolute Basophils 0.0 Carbonic Acid 0.82 L HCO3/H2CO3 Ratio 18:1 ABG pH 7.36 ABG pCO2 27.3 L ABG pO2 90.2 ABG HCO3 15.0 L ABG O2 Saturation 96.7 ABG Base Excess -9.0 FiO2 40% Sodium 143.0 Potassium 4.3 Chloride 117 H Carbon Dioxide 17 L Anion Gap 9 BUN 7 Creatinine 0.46 L Est GFR ( Amer) > 60 Est GFR (Non-Af Amer) > 60 Glucose 111 H Calcium 8.1 L Phosphorus 2.7 Magnesium 2.2 Total Bilirubin 0.3 AST 20 ALT 31 Alkaline Phosphatase 64 Total Protein 5.6 L Albumin 2.9 L Triglycerides 10/18/17 05:42 WBC RBC Hgb Hct MCV MCH MCHC RDW Plt Count Seg Neutrophils % Lymphocytes % Monocytes % Eosinophils % Basophils % Absolute Neutrophils Absolute Lymphocytes Absolute Monocytes Absolute Eosinophils Absolute Basophils Carbonic Acid 0.88 L HCO3/H2CO3 Ratio 18:1 ABG pH 7.36 ABG pCO2 29.1 L ABG pO2 100.3 H ABG HCO3 16.2 L ABG O2 Saturation 97.5 ABG Base Excess -7.9 FiO2 40% Sodium Potassium Chloride Carbon Dioxide Anion Gap BUN Creatinine Est GFR ( Amer) Est GFR (Non-Af Amer) Glucose Calcium Phosphorus Magnesium Total Bilirubin AST ALT Alkaline Phosphatase Total Protein Albumin Triglycerides Impressions: Chest X-Ray 10/18/17 06:00 IMPRESSION: Tubes in appropriate position Partial clearing of the bilateral patchy airspace disease. Assessment & Plan - Diagnosis (1) ACUTE ASTHMA ATTACK Is this a current diagnosis for this admission?: Yes Plan: Asthma slightly improved tachycardia not nearly resolved requiring continuous as needed beta-blockers no acute care obstetrical available talk to her current quantitative developer as well as primary suggested to both the patient be transferred (2) Qualifiers: Weeks of gestation: 18 weeks Qualified Code(s): Z3A.18 - 18 weeks gestation of Is this a current diagnosis for this admission?: Yes Plan: heart tones remained in the 150s - Time Total Critical Time (Minutes): 55
[2017-10-18 11:30] LABS: APPEARANCE,URINE TURBID; BILIRUBIN,URINE NEGATIVE (NEGATIVE); COLOR,URINE YELLOW; GLUCOSE, URINE NEGATIVE (NEGATIVE); KETONES,URINE 20 mg/dL (NEGATIVE); LEUKOCYTE ESTERASE,URINE NEGATIVE (NEGATIVE); NITRITE,URINE NEGATIVE (NEGATIVE); PROTEIN,URINE 30 mg/dL (NEGATIVE); UROBILINOGEN,URINE NEGATIVE mg/dL (<2.0)
[2017-10-18 12:12] VITALS: BP 107/64
== END 2017-10-18 12:25 | disposition short-term general hospital (02) | DRG 781 ==
LOC: ER 12:00 → EH 17:56 → 3N 21:57 → ICU 10-16 15:28
PROVIDERS: ADMIT Internal Medicine; ATTEND Internal Medicine
PROC: 3E0F73Z Introduction of Anti-inflammatory into Respiratory Tract, Via Natural or Artificial Opening (ICD-10-PCS; 2017-10-15)
PROC: 5A09357 Assistance with Respiratory Ventilation, Less than 24 Consecutive Hours, Continuous Positive Airway Pressure (ICD-10-PCS; 2017-10-16)
PROC: 5A1945Z Respiratory Ventilation, 24-96 Consecutive Hours (ICD-10-PCS; principal; 2017-10-17)
PROC: 0BH17EZ Insertion of Endotracheal Airway into Trachea, Via Natural or Artificial Opening (ICD-10-PCS; 2017-10-17)
DX: O99.512 Diseases of the respiratory system complicating pregnancy, second trimester (principal); J45.902 Unspecified asthma with status asthmaticus; Z87.891 Personal history of nicotine dependence; Z78.1 Physical restraint status; Z3A.18 18 weeks gestation of pregnancy
CPT/HCPCS: 31500; 36415; 71045; 80048; 80053; 80198; 81001; 82607; 82728; 82746; 82803; 83540; 83550; 83735; 84100; 84478; 85025; 85045; 87040; 87070; 87077; 87086; 87186; 87205; 94002; 94003; 94640; 94644; 96361; 96365; 96366; 96375; 99285; J0295; J0330; J1644; J2060; J2250; J2704; J2930; J3475; J3490; J7030; J7040; J7620

== ENCOUNTER 2018-02-20 11:04 | Outpatient (CLI) | payer MEDICAID ==
[2018-02-20 11:41] LABS: APPEARANCE,URINE SLIGHTLY-CLOUDY; BILIRUBIN,URINE NEGATIVE (NEGATIVE); COLOR,URINE YELLOW; GLUCOSE, URINE NEGATIVE (NEGATIVE); KETONES,URINE NEGATIVE (NEGATIVE); LEUKOCYTE ESTERASE,URINE NEGATIVE (NEGATIVE); NITRITE,URINE NEGATIVE (NEGATIVE); PROTEIN,URINE NEGATIVE (NEGATIVE); URINE SPECIFIC GRAVITY 1.004; UROBILINOGEN,URINE NEGATIVE mg/dL (<2.0)
[2018-02-20 11:56] LABS: URINE AMPHETAMINES SCREEN NEGATIVE; URINE BARBITURATES SCREEN NEGATIVE; URINE BENZODIAZEPINES SCREEN NEGATIVE; URINE COCAINE SCREEN NEGATIVE; URINE MARIJUANA (THC) SCREEN NEGATIVE; URINE METHADONE SCREEN NEGATIVE; URINE PHENCYCLIDINE SCREEN NEGATIVE
[2018-02-20 12:25] LABS: BACTERIA (WET MOUNT) 4+ BACTERIA SEEN; EPITHELIALS (WET MOUNT) 3+ EPITHELIALS SEEN; RBCS (WET MOUNT) FEW RBCS SEEN; T.VAGINALIS (WET MOUNT) NO TRICHOMONAS SEEN; WBCS (WET MOUNT) 4+ WBCS SEEN; YEAST (WET MOUNT) NO YEAST SEEN
[2018-02-20] MEDS ORDERED: METRONIDAZOLE RTU 500 MG/NS 100 ML IV ONE (13:03)
[2018-02-20] MEDS ORDERED: METRONIDAZOLE 500 MG/NS RTU 500 MG/100 ML RTUPB IV ONE (13:05)
[2018-02-20] MEDS ORDERED: RINGERS SOLUTION,LACTATED 300 ML IV ONE (13:06)
[2018-02-20] MEDS ORDERED: RINGERS SOLUTION,LACTATED 1,000 ML IV PRN (13:06)
--- NOTE | 2018-02-20 15:12 | L&D Progress Notes ---
PROGRESS NOTES Datetime Report Generated by CPN: 02/20/2018 15:12 PROGRESS NOTE Impression Other: cramping Procedures- Other: Monitor Plan: Continue Present Management Vital Signs : Reviewed; Within Normal Limits Comment: Pt c/o cramping; toco showed some irritability. Wet prep done which suggested BV. Pt given IV fluids and IV Flagyl. Cramping resolved. D/C with labor precautions. FETUS A FHR - Baseline: 120s Monitoring: External US Accelerations: 15X15 Decelerations: None FHR Category: Category I : 36.2 SIGNATURE SIGNATURE: [id number] Signature: with User ID: [email or web address]
--- NOTE | 2018-02-20 15:32 | Non Stress Test Report ---
Non Stress Test Datetime Report Generated by CPN: 02/20/2018 15:32 DEMOGRAPHIC EGA NST: 36.2 INDICATION Indication for Study: Other Indication for Study (NST) Other: labor check MONITORING Monitor Explained: Monitor Explained; Test Explained; Patient Verbalized Understanding Time on Monitor: 02/20/2018 11:28 Time off Monitor: 02/20/2018 14:23 NST Duration: 175 NST INTERVENTIONS NST Interventions: PO Hydration; Reposition Patient Physician Notified NST: Dr Younger BABY A: [id number] BABY A Movement : Present Contraction Frequency : irregular FHR Baseline : 120 Accelerations : 15X15 Decelerations : None Variability : Moderate 6-25bpm NST Review: Meets Criteria for Reactive NST NST Review and Verified By : Sharee Camp RNC NST Results: Reactive NST REPORT Report Trigger: Send Report
== END 2018-02-20 15:24 | disposition home or self-care (01) ==
LOC: LC 11:04
PROVIDERS: ATTEND Obstetrics & Gynecology
PROC: 4A1HXCZ Monitoring of Products of Conception, Cardiac Rate, External Approach (ICD-10-PCS; principal; 2018-02-20)
DX: O23.593 Infection of other part of genital tract in pregnancy, third trimester (principal); N76.0 Acute vaginitis; B96.89 Other specified bacterial agents as the cause of diseases classified elsewhere; Z3A.36 36 weeks gestation of pregnancy
CPT/HCPCS: 80307; 81005; 84112; 87210

== ENCOUNTER 2018-03-13 16:45 | Outpatient (CLI) | payer MEDICAID ==
--- NOTE | 2018-03-13 17:30 | Non Stress Test Report ---
Non Stress Test Datetime Report Generated by CPN: 03/13/2018 17:30 DEMOGRAPHIC EGA NST: 39.2 INDICATION Indication for Study: Ordered by Provider Indication for Study (NST) Other: LC MONITORING Monitor Explained: Monitor Explained; Test Explained; Patient Verbalized Understanding Time on Monitor: 03/13/2018 16:54 Time off Monitor: 03/13/2018 17:14 NST Duration: 20 NST INTERVENTIONS NST Interventions: PO Hydration Physician Notified NST: K. Benito, CNM BABY A: [id number] BABY A Movement : Present Contraction Frequency : Irregular FHR Baseline : 125 Accelerations : 15X15 Decelerations : None Variability : Moderate 6-25bpm NST Review: Meets Criteria for Reactive NST NST Review and Verified By : BENNY KINGSLEY Results: Reactive NST REPORT Report Trigger: Send Report
[2018-03-13 17:36] LABS: APPEARANCE,URINE CLOUDY; BILIRUBIN,URINE NEGATIVE (NEGATIVE); COLOR,URINE YELLOW; GLUCOSE, URINE NEGATIVE (NEGATIVE); KETONES,URINE NEGATIVE (NEGATIVE); LEUKOCYTE ESTERASE,URINE LARGE (NEGATIVE); NITRITE,URINE NEGATIVE (NEGATIVE); PROTEIN,URINE NEGATIVE (NEGATIVE); URINE SPECIFIC GRAVITY 1.008; UROBILINOGEN,URINE NEGATIVE mg/dL (<2.0)
[2018-03-13 17:58] LABS: URINE AMPHETAMINES SCREEN NEGATIVE; URINE BARBITURATES SCREEN NEGATIVE; URINE BENZODIAZEPINES SCREEN NEGATIVE; URINE COCAINE SCREEN NEGATIVE; URINE MARIJUANA (THC) SCREEN NEGATIVE; URINE METHADONE SCREEN NEGATIVE; URINE PHENCYCLIDINE SCREEN NEGATIVE
== END 2018-03-13 17:20 | disposition home or self-care (01) ==
LOC: LC 16:45
PROVIDERS: ATTEND Obstetrics & Gynecology
DX: Z34.93 Encounter for supervision of normal pregnancy, unspecified, third trimester (principal)
CPT/HCPCS: 59025; 80307; 81005

== ENCOUNTER 2018-03-19 14:41 | Inpatient (IN) | payer MEDICAID ==
[2018-03-19 15:05] LABS: APPEARANCE,URINE CLOUDY; BILIRUBIN,URINE NEGATIVE (NEGATIVE); COLOR,URINE YELLOW; GLUCOSE, URINE NEGATIVE (NEGATIVE); KETONES,URINE NEGATIVE (NEGATIVE); LEUKOCYTE ESTERASE,URINE LARGE (NEGATIVE); NITRITE,URINE NEGATIVE (NEGATIVE); PROTEIN,URINE NEGATIVE (NEGATIVE); URINE SPECIFIC GRAVITY 1.016; UROBILINOGEN,URINE NEGATIVE mg/dL (<2.0)
[2018-03-19 15:25] LABS: URINE AMPHETAMINES SCREEN NEGATIVE; URINE BARBITURATES SCREEN NEGATIVE; URINE BENZODIAZEPINES SCREEN NEGATIVE; URINE COCAINE SCREEN NEGATIVE; URINE MARIJUANA (THC) SCREEN NEGATIVE; URINE METHADONE SCREEN NEGATIVE; URINE PHENCYCLIDINE SCREEN NEGATIVE
[2018-03-19] MEDS ORDERED: ALBUTEROL SULFATE HFA (90 MCG/PUFF) 200 PUFF/8.5 GM MDI IH PRN (15:39)
[2018-03-19 16:05] LABS: HEMATOCRIT 37.9 % (36.0-47.0); HEMOGLOBIN 13.2 g/dL (12.0-15.5); MEAN CORPUSCULAR HEMOGLOBIN 30.6 pg (27.0-33.4); MEAN CORPUSCULAR HGB CONC 34.7 g/dL (32.0-36.0); MEAN CORPUSCULAR VOLUME 88 fl (80-97); PLATELET COUNT 210 10^3/uL (150-450); RED CELL DISTRIBUTION WIDTH 14.5 % (11.5-14.0); WHITE BLOOD COUNT 10.2 10^3/uL (4.0-10.5)
[2018-03-19 16:57] LABS: ABSOLUTE LYMPHOCYTES# (MANUAL) 2.7 10^3/uL (0.5-4.7); ABSOLUTE MONOCYTES # (MANUAL) 0.1 10^3/uL (0.1-1.4); ABSOLUTE NEUTROPHILS# (MANUAL) 6.9 10^3/uL (1.7-8.2); BASOPHILS % (MANUAL) 0 % (0-2); EOSINOPHILS % (MANUAL) 5 % (0-6); LYMPHOCYTES % (MANUAL) 25 % (13-45); MONOCYTES % (MANUAL) 1 % (3-13); SEGMENTED NEUTROPHILS % (MAN) 68 % (42-78); TOTAL CELLS COUNTED 100
[2018-03-19 17:00] LABS: ANISOCYTOSIS SLIGHT; BURR CELLS SLIGHT; PLATELET COMMENT ADEQUATE; PLATELET LARGE PRESENT; POIKILOCYTOSIS SLIGHT
[2018-03-19] MEDS ORDERED: OXYTOCIN/NORMAL SALINE 0 UNIT/0 ML RTUINJ ONE (17:05)
[2018-03-19] MEDS ORDERED: OXYTOCIN/NORMAL SALINE 20 UNIT/1,000 ML RTUINJ IV PRN (17:08)
[2018-03-19] MEDS ORDERED: RINGERS SOLUTION,LACTATED 1,000 ML IV ONE (17:09)
[2018-03-19] MEDS ORDERED: RINGERS SOLUTION,LACTATED 1,000 ML IV PRN (17:09)
[2018-03-19] MEDS ORDERED: CITRIC ACID/SODIUM CITRATE ORAL SOLN 15 ML UDCUP ONE (18:09)
[2018-03-19] MEDS ORDERED: OXYTOCIN 10 UNIT/ML VIAL ONE (18:49)
[2018-03-19] MEDS ORDERED: OXYTOCIN/NORMAL SALINE 20 UNIT/1,000 ML RTUINJ ONE (18:50)
[2018-03-19] MEDS ORDERED: LIDOCAINE 1% INJ-PF (10 MG/ML) 30 ML SDV ONE (18:50)
[2018-03-19] MEDS ORDERED: MISOPROSTOL 0.2 MG TABLET ONE (18:50)
[2018-03-19] MEDS ORDERED: PHENYLEPHRINE HCL INJ/PF 10 MG/1 ML SDV ONE (18:54)
[2018-03-19] MEDS ORDERED: FENTANYL CITRATE INJ/PF 100 MCG/2 ML AMPUL ONE (18:54)
[2018-03-19] MEDS ORDERED: EPHEDRINE SULFATE INJ 50 MG/1 ML AMPULE ONE (18:55)
[2018-03-19] MEDS ORDERED: BUPIVACAINE HCL 0.5 % INJ/PF 30 ML SDV ONE (18:55)
[2018-03-19] MEDS ORDERED: FENTANYL/BUPIVACAINE/NS/PF 300 MCG/150 ML RTUINJ EPI ONE (18:56)
--- NOTE | 2018-03-19 22:30 | Admission Physical ---
Datetime Report Generated by CPN: 03/19/2018 22:30 CURRENT ADMISSION Chief Complaint: Uterine Contractions; Suspected Ruptured Membranes Indication for Induction: PROM Admit Impression : Term, Intrauterine ; No Active Labor; Ruptured Membranes; Induction of Labor Admit Plan: Admit to Unit; Initiate Labor Induction Protocol ALLERGIES Medication Allergies: No Medication Allergies: No Known Allergies (03/19/2018) Latex: No Latex Allergies Food Allergies: none Environmental Allergies: dust, seasonal OBSTETRICAL HISTORY EDC: 03/18/2018 00:00 : 2 Para: 1 Term: 1 : 0 SAB: 0 IAB: 0 Ectopic: 0 Livin Cesareans: 0 VBACs: 0 Multiple Births: 0 Gestational Diabetes: No Rh Sensitization: No Incompetent Cervix: No BEATA: No Infertility: No ART Treatment: No Uterine Anomaly: No IUGR: No Hx Previous C/S: No Macrosomia: No Hx Loss/Stillborn: No PIH: No Hx : No Placenta Previa/Abruption: No Depression/PP Depression: No PTL/PROM: No Post Hemorrhage: No Current Procedures: Ultrasound; NST Obstetrical History Comments: G1- 2014 40 weeks G2- current SEE RECORDS Alcohol: No Marijuana : No Cocaine: No Other Illicit Drugs: No Cigarettes: Former Smoker. 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 Surgery: No Heart Disease: No Hosp/Surgery: Yes Autoimmune Disorder: No Anesthetic Complications: No Kidney Disease: No Abnormal Pap Smear: No Neuro/Epilepsy: No Psychiatric Disorders: No Other Medical Diseases: No Significant Family History: No Varicosities/Phlebitis: No Trauma/Violence : No Thyroid Dysfunction: No Medical History Comments: childbirth, hospitalized and intubated in september for severe asthma attack, migraines, INFECTIOUS HISTORY Gonorrhea: No Genital Herpes: No Chlamydia: No Tuberculosis: No Syphilis: No Hepatitis: No HIV/AIDS Exposure: No Rash or Viral Illness: No HPV: No PHYSICAL EXAM General: Normal HEENT: Normal Neurologic: Normal Thyroid: Deferred Heart: Normal Lungs: Normal Breast: Deferred Back: Deferred Abdomen: Normal Genitourinary Exam: Normal Extremities: Normal DTRs: Normal Pelvic Type: Adequate Vital Signs: Reviewed VAGINAL EXAM Dilatation: 2 Effacement: 60 Station: -3 Contraction Comments: rare MEMBRANES Membranes: Ruptured Amniotic Fluid Color: Clear FETUS A EGA: 40.1 Monitoring: External US FHR- Baseline: 130 Variability: Moderate 6-25bpm Accelerations: 15X15 Decelerations: None FHR Category: Category I Presentation: Vertex Admit Comment: 22yo at 40+1ega presents for evaluation of low ROSA on US today. Upon arrival she stated she felt a gush of water this am. Actimprom was positive. PMHx with asthma - required intubation this past summer due to status asthmaticus. smoker. GBS negative. cvx 2cm on admission and Cooks catheter placed. Pt then achieved 8cm dilation with cooks catheter and desired epidural. EFW 02/18 was 7#. pelvis proven to 6#4oz Anticipate PLANS FOR LABOR AND DELIVERY Labor and Delivery: None Pain Management: Epidural Feeding Preference: Both Benefit of Breast Feed Discussed: Yes Circumcision: Yes INFORMED CONSENT Informed Consent Obtained: Vaginal Delivery; Induction of Labor; Risks, Benefits and Alternatives Discussed Signature: with User ID: [email or web address]
[2018-03-20] MEDS ORDERED: MAGNESIUM HYDROXIDE SUSP 30 ML UDCUP PO PRN (01:34)
[2018-03-20] MEDS ORDERED: PSEUDOEPHEDRINE HCL 30 MG TABLET PO PRN (01:34)
[2018-03-20] MEDS ORDERED: PROMETHAZINE HCL 25 MG SUPP.RECT PR PRN (01:34)
[2018-03-20] MEDS ORDERED: ZOLPIDEM TARTRATE 5 MG TABLET PO PRN (01:34)
[2018-03-20] MEDS ORDERED: GLYCERIN/WITCH HAZEL LEAF 1 EACH MED..PAD TP PRN (01:34)
[2018-03-20] MEDS ORDERED: PROMETHAZINE HCL INJ 25 MG/1 ML VIAL IV PRN (01:34)
[2018-03-20] MEDS ORDERED: ACETAMINOPHEN WITH CODEINE #3 TABLET PO PRN ×2 (01:34)
[2018-03-20] MEDS ORDERED: DIPHENHYDRAMINE HCL 25 MG CAPSULE PO PRN (01:34)
[2018-03-20] MEDS ORDERED: ACETAMINOPHEN 650 MG SUPP.RECT PR PRN (01:34)
[2018-03-20] MEDS ORDERED: BENZOCAINE/MENTHOL AEROSOL SPRAY 56 ML TOP PRN (01:34)
[2018-03-20] MEDS ORDERED: DIBUCAINE 1% OINTMENT 28 GM TP PRN (01:34)
[2018-03-20] MEDS ORDERED: OXYTOCIN/NORMAL SALINE 20 UNIT/1,000 ML RTUINJ IV PRN (01:34)
[2018-03-20] MEDS ORDERED: MEASLES,MUMPS&RUBELLA VACC/PF 0.5 ML VIAL SUBCUT PRN (01:34)
[2018-03-20] MEDS ORDERED: DIPH/PERTUSS(ACELL)/TETANUS VAC/PF 0.5 ML SYR (>=10YO) IM PRN (01:34)
[2018-03-20] MEDS ORDERED: PROMETHAZINE HCL 25 MG TABLET PO PRN (01:34)
[2018-03-20] MEDS ORDERED: NA PHOS,M-B/NA PHOS,DI-BA (ADULT) 133 ML ENEMA PR PRN (01:34)
--- NOTE | 2018-03-20 02:38 | Warning Signs in Babies ---
VOD Warning Signs Datetime Report Generated by [facility]: 03/20/2018 02:38 VOD#[id number] -Warning Signs in Babies: Needs to be viewed. (02/20/2018 11:16:Teagan Jamison RN)
--- NOTE | 2018-03-20 03:33 | Delivery Summary ---
Del Sum A-C Datetime Report Generated by CPN: 03/20/2018 03:33 DELIVERY PERSONNEL DELIVERY PERSONNEL: [id number] Delivery Doctor:: Lavonne Hernandez MD Labor and Delivery Nurse:: Teagan Jamison RN Labor and Delivery Nurse:: Hamida Arguello RN Nursery Nurse:: Nhung Hampton RN Student Observers:: Pablo Aguilar CNA Housing Case Manager/JENNYFER: Nas Campo CNA MATERNAL INFORMATION Delivery Anesthesia: Epidural Medications After Delivery: Pitocin Bolus-Please Comment Meds After Delivery Comment: 20 units Pitocin in 1 L NS bolusing per order Maternal Complications: None Provider Comments: VMI delivered in ERIN presentation with tight nuchal cord delivered through. Shoulders and body delivered without difficulty. Cord doubly clamped and cut and infant to maternal abd for NRP. Placenta delivered intact spontaneously with mild atony and small amount of trailing membranes removed. FF at U and good hemostasis after repair of 1st degree perineal laceration. Mother and baby stable upon provider leaving the room LABOR SUMMARY EDC: 03/18/2018 00:00 No. Babies in Womb: 1 Attempted: No Labor Anesthesia: Epidural LABOR INFORMATION Reason for Induction: Not Applicable Onset of Labor: 03/19/2018 18:20 Complete Dilatation: 03/20/2018 23:39 Oxytocin: Augmentation Group B Beta Strep: Negative Antibiotics # of Doses: 0 Steroids Given: None Reason Steroids Not Administered: Not Applicable MEMBRANES Membranes Rupture Method: Spontaneous Rupture of Membranes: 03/19/2018 11:00 Length of Rupture (hr): 14.13 Amniotic Fluid Color: Clear Amniotic Fluid Amount: Small Amniotic Fluid Odor: Normal STAGES OF LABOR Stage 1 hr: 29 Stage 1 min: 19 Stage 2 hr: -22 Stage 2 min: -31 Stage 3 hr: 0 Stage 3 min: 3 Total Time in Labor hr: 6 Total Time in Labor min: 51 VAGINAL DELIVERY Episiotomy: None Laceration #1: Perineal Laceration Extension #1: First Degree Laceration Repair: Yes Laceration Repair Note: 1st degree perineal laceration repaired with good hemostasis Sponge Count Correct: N/A Sharps Count Correct: N/A CSECTION DELIVERY Primary Indication: N/A Secondary Indication: N/A CSection Incidence: N/A Labor: N/A Elective: N/A CSection Incision: N/A BABY A INFORMATION Infant Delivery Date/Time: 03/20/2018 01:08 Method of Delivery: Vaginal Born in Route : No : N/A Forceps: N/A Vacuum Extraction: N/A Shoulder Dystocia : No PRESENTATION/POSITION BABY A Presentation: Cephalic Cephalic Presentation: Vertex Vertex Position: Right Occipital Anterior Breech Presentation: N/A PLACENTA INFORMATION BABY A Placenta Delivery Time : 03/20/2018 01:11 Placenta Method of Delivery: Spontaneous Placenta Status: Delivered SCORES BABY A Heart Rate 1 min: >100 bpm Resp Effort 1 min: Good Cry Reflex Irritability 1 min: Cough or Sneeze or Pulls Away Muscle Tone 1 min: Active Motion Color 1 min: Blue/Pale Resuscitation Effort 1 min: Tactile Stimulation SCORE 1 MIN: 8 Heart Rate 5 min: >100 bpm Resp Effort 5 min: Good Cry Reflex Irritability 5 min: Cough or Sneeze or Pulls Away Muscle Tone 5 min: Active Motion Color 5 min: Blue/Pale Resuscitation Effort 5 min: Tactile Stimulation SCORE 5 MIN: 8 INFANT INFORMATION BABY A Gestational Age at Delivery: 40.2 Gestational Status: Full Term- 39- 40.6 Weeks Infant Outcome : Liveborn Condition : Stable Sex: Male IDENTIFICATION BABY A Infant Verification Date/Time: 03/20/2018 01:27 ID Band Number: [id number] Mother's Name Verified: Yes RN Verifying Infant: C. Gentilin, RN Additional Verifying Personnel: R. Etrel BLOOD BANK SPECIALIST WEIGHT/LENGTH BABY A Birthweight (gm): 3335 Weight (lb): 7 Infant Weight (oz): 6 Infant Length (in): 19.75 Length (cm): 50.17 CORD INFORMATION BABY A No. Cord Vessels: 3 Nuchal Cord : Around Neck x1, Tight Cord Blood Taken: Yes-For Eval (Mom's Blood Type - or O+) Suction: Mouth; Nose ASSESSMENT BABY A Skin to Skin: Yes BABY B INFORMATION : N/A SIGNATURES Signature: with User ID: [email or web address]
[2018-03-20] MEDS ORDERED: IBUPROFEN 800 MG TABLET ONE (05:52)
[2018-03-20] MEDS: IBUPROFEN 800 MG TABLET PO SCH ×3 (05:59→21:08)
[2018-03-20] MEDS: DOCUSATE SODIUM 100 MG CAPSULE PO SCH ×2 (10:31→17:40)
[2018-03-20] MEDS: SENNOSIDES/DOCUSATE 8.6-50 MG 1 EACH TABLET PO SCH (10:31)
[2018-03-20] MEDS: FERROUS SULFATE 325 MG TABLET PO SCH ×2 (10:31→17:40)
[2018-03-20] MEDS: FAMOTIDINE 20 MG TABLET PO SCH ×2 (10:31→21:08)
[2018-03-20] MEDS: PRENATAL VITAMIN W DHA CAPSULE PO SCH (10:31)
[2018-03-21] MEDS: IBUPROFEN 800 MG TABLET PO SCH ×2 (05:09→13:53)
[2018-03-21 07:36] LABS: HEMATOCRIT 34.1 % (36.0-47.0); HEMOGLOBIN 11.6 g/dL (12.0-15.5); MEAN CORPUSCULAR HEMOGLOBIN 30.6 pg (27.0-33.4); MEAN CORPUSCULAR HGB CONC 34.1 g/dL (32.0-36.0); MEAN CORPUSCULAR VOLUME 90 fl (80-97); PLATELET COUNT 180 10^3/uL (150-450); RED CELL DISTRIBUTION WIDTH 14.7 % (11.5-14.0); WHITE BLOOD COUNT 11.1 10^3/uL (4.0-10.5)
[2018-03-21 08:52] VITALS: BP 122/62
[2018-03-21] MEDS: PRENATAL VITAMIN W DHA CAPSULE PO SCH (09:47)
[2018-03-21] MEDS: DOCUSATE SODIUM 100 MG CAPSULE PO SCH ×2 (09:47→17:35)
[2018-03-21] MEDS: FERROUS SULFATE 325 MG TABLET PO SCH ×2 (09:47→17:35)
[2018-03-21] MEDS: FAMOTIDINE 20 MG TABLET PO SCH (09:47)
[2018-03-21] MEDS: SENNOSIDES/DOCUSATE 8.6-50 MG 1 EACH TABLET PO SCH (09:47)
--- NOTE | 2018-03-21 10:23 | PDOC DISCHARGE SUMMARY ---
Final Diagnosis Discharge Date: 03/21/18 - Final Diagnosis (1) Asthma affecting in third trimester Is this a current diagnosis for this admission?: Yes (2) Obstetrical laceration, first degree Is this a current diagnosis for this admission?: Yes (3) Vaginal delivery Is this a current diagnosis for this admission?: Yes Discharge Data - Discharge Medication Prescriptions: Ibuprofen [Motrin 800 mg Tablet] 800 mg PO Q8HP PRN #60 tablet PRN Reason: Home Medications: Vits96/Iron Fum/Folic [ Tablet] 1 tab PO DAILY 02/20/18 Loratadine [Claritin] 10 mg PO DAILY 03/19/18 Albuterol Sulfate [Proair HFA Inhalation Aerosol 8.5 gm MDI] 2 puff IH Q6HP PRN hfa.aer.ad 03/21/18 Ibuprofen [Motrin 800 mg Tablet] 800 mg PO Q8HP PRN #60 tablet 03/21/18 Procedures: Cerciage Intrapartum Procedure(s): Spontaneous Vaginal Delivery Laceration-Degree: 1st - Diagnosis Test Laboratory: Temp Pulse Resp BP Pulse Ox 97.5 F 81 16 122/62 97 03/21/18 07:51 03/21/18 07:51 03/21/18 07:51 03/21/18 07:51 03/21/18 07:51 03/19/18 03/19/18 03/21/18 14:55 15:37 07:04 RBC 4.30 3.80 Hgb 13.2 11.6 L Hct 37.9 34.1 L Urine Opiates Screen NEGATIVE - Discharge information/Instructions Discharge Activity: Balance Activity w/Rest, Pelvic Rest Discharge Diet: Regular Disposition: HOME, SELF-CARE Follow up with: [facility] in: 4, Weeks
== END 2018-03-21 19:05 | disposition home or self-care (01) | DRG 807 ==
LOC: LC 14:41 → LR 15:18 → 2S 03-20 03:20
PROVIDERS: ADMIT Student in an Organized Health Care Education/Training Program; ATTEND Student in an Organized Health Care Education/Training Program
PROC: 4A1HXCZ Monitoring of Products of Conception, Cardiac Rate, External Approach (ICD-10-PCS; 2018-03-19)
PROC: 10E0XZZ Delivery of Products of Conception, External Approach (ICD-10-PCS; principal; 2018-03-20)
PROC: 0HQ9XZZ Repair Perineum Skin, External Approach (ICD-10-PCS; 2018-03-20)
DX: O69.1XX0 Labor and delivery complicated by cord around neck, with compression, not applicable or unspecified (principal); Z37.0 Single live birth; O99.513 Diseases of the respiratory system complicating pregnancy, third trimester; J45.909 Unspecified asthma, uncomplicated; O70.0 First degree perineal laceration during delivery; Z87.891 Personal history of nicotine dependence; Z3A.40 40 weeks gestation of pregnancy
CPT/HCPCS: 36415; 59025; 80307; 81005; 84112; 85025; 85027; 86850; 86900; 86901; 88307; 94760; C1726; J2370; J2590; J3010; J3490

== ENCOUNTER 2018-07-15 05:43 | Emergency (ER) | payer SELFPAY ==
[2018-07-15] MEDS ORDERED: ALBUTEROL SULFATE 0.083% NEB 2.5 MG/3 ML AMPUL NEB ONE (06:47)
[2018-07-15] MEDS ORDERED: IPRATROPIUM/ALBUTEROL 0.5-2.5 MG/3 ML AMPUL NEB ONE (06:47)
[2018-07-15] MEDS ORDERED: PREDNISONE 20 MG TABLET PO ONE (06:47)
--- NOTE | 2018-07-15 06:54 | ER Document Report ---
ED General - General Chief Complaint: Breathing Difficulty Stated Complaint: DIFFICULTY BREATHING Time Seen by Provider: 07/15/18 06:21 TRAVEL OUTSIDE OF THE [place] IN LAST 30 DAYS: No - HPI Notes: Patient is a 22-year-old female that presents to the emergency department for chief complaint of asthma exacerbation. Patient reports increased shortness of breath over the last few weeks. She does states she has seasonal allergies and has not been on any antiallergy medication recently. Patient states that she has been using her albuterol 3-4 times a day which does give her short-term relief. Today the shortness of breath had become more severe. She has had admissions to the hospital in the past for her asthma and states when she was about a year ago she had a severe asthma exacerbation that required intubation. She denies any recent illness or associated fevers. She states her cough is dry with no sputum production. She denies any nausea, vomiting, diaphoresis, chest pain, numbness/weakness, and abdominal pain. Past Medical History: Asthma, seasonal allergies Past Surgical History: Negative Social History: Denies drugs alcohol and tobacco Family History: Reviewed and noncontributory for presenting illness Allergies: Reviewed, see documented allergy list. REVIEW OF SYSTEMS: CONSTITUTIONAL : No fever No chills No diaphoresis No recent illness EENT: No vision changes No congestion No sore throat CARDIOVASCULAR: No chest pain No palpitations RESPIRATORY: shortness of breath cough difficulty breathing GASTROINTESTINAL: No abdominal pain No nausea No vomiting No diarrhea GENITOURINARY: No dysuria No hematuria No difficulty urinating MUSCULOSKELETAL: No back pain No leg pain No arm pain SKIN: No rashes No lesions LYMPHATIC: No swollen, enlarged glands. NEUROLOGICAL: No lightheadedness No headache No weakness No paresthesias PSYCHIATRIC: No anxiety No depression PHYSICAL EXAMINATION: Vital signs reviewed, nursing noted reviewed. GENERAL: Well-appearing, well-nourished and in no acute distress. HEAD: Atraumatic, normocephalic. EYES: Eyes appear normal, extraocular movements intact, sclera anicteric, con junctiva are normal. ENT: nares patent, oropharynx clear without exudates. Moist mucous membranes. NECK: Normal range of motion, supple without lymphadenopathy LUNGS: Breath sounds diminished bilaterally with expiratory wheezing, mild tachypnea, no accessory muscle use, speaking in full sentences HEART: Tachycardic rate and regular rhythm without murmurs ABDOMEN: Soft, nontender, normoactive bowel sounds. No rebound, guarding, or rigidity. No masses appreciated. EXTREMITIES: Nontender, good range of motion, no pitting or edema. NEUROLOGICAL: No focal neurological deficits. Moves all extremities spontaneously Motor and sensory grossly intact on exam. PSYCH: Normal mood, normal affect. SKIN: Warm, Dry, normal turgor, no rashes or lesions noted on exposed skin - Related Data Allergies/Adverse Reactions: No Known Allergies Allergy (Verified 03/19/18 14:56) Past Medical History - Social History Smoking Status: Current Every Day Smoker Family History: Hypertension Patient has suicidal ideation: No Patient has homicidal ideation: No - Past Medical History Cardiac Medical History: Denies: Hx Heart Attack, Hx Hypertension Pulmonary Medical History: Reports: Hx Asthma - allergy-induced Neurological Medical History: Denies: Hx Cerebrovascular Accident, Hx Seizures Renal/ Medical History: Denies: Hx Peritoneal Dialysis GI Medical History: Denies: Hx Hepatitis, Hx Hiatal Hernia, Hx Ulcer Psychiatric Medical History: Denies: Hx Depression Infectious Medical History: Denies: Hx Hepatitis Past Surgical History: Denies: Hx Hysterectomy, Hx Mastectomy, Hx Open Heart Kyra eldon, Hx Pacemaker - Immunizations Immunizations up to date: Yes Hx Diphtheria, Pertussis, Tetanus Vaccination: Yes Physical Exam - Vital signs Vitals: Temp Pulse Resp BP Pulse Ox 97.4 F 103 H 22 H 124/75 95 07/15/18 05:44 07/15/18 05:44 07/15/18 05:44 07/15/18 05:44 07/15/18 05:44 Course - Re-evaluation Re-evalutation: 07/15/18 06:54 Vitals reviewed. Nursing notes reviewed. Patient is tachypneic and mildly tachycardic. She did use albuterol this morning at home which is likely attributing to her tachycardia. Her symptoms today feel identical to previous asthma attack she has had in the past. She is wheezy and tight bilaterally. I do not have suspicion currently for underlying pneumonia or pulmonary embolism since she has no risk factors and is PERC negative. Patient will be given aerosols and prednisone for her asthma exacerbation. She was counseled on the importance of following with primary care and we did discuss the possibility that she may need Symbicort or Spiriva if symptoms are persisting past steroid burst. Patient was counseled on return precautions and verbalized understanding. - Vital Signs Vital signs: Temp Pulse Resp BP Pulse Ox 97.4 F 103 H 22 H 124/75 95 07/15/18 05:44 07/15/18 05:44 07/15/18 05:44 07/15/18 05:44 07/15/18 05:44 Discharge - Discharge Clinical Impression: Asthma exacerbation Qualifiers: Asthma severity: unspecified severity Asthma persistence: intermittent Qualified Code(s): J45.21 - Mild intermittent asthma with (acute) exacerbation Condition: Stable Disposition: HOME, SELF-CARE Instructions: Asthma ([facility]) Additional Instructions: Please return to the emergency department if you have any worsening, or concern of your symptoms. Please return to the emergency department if you develop chest pain, difficulty breathing, severe abdominal pain, or ongoing vomiting. Please follow-up with your primary care physician in 2-3 days and any other recommended physicians. If prescribed, take all medications as directed. If you have any questions or concerns do not hesitate to return the emergency department for evaluation. Begin taking Claritin or Zyrtec for seasonal allergies Prescriptions: Albuterol Sulfate [Albuterol Sulfate 5mg/1 mL] 5 mg PO Q4 PRN #30 ml PRN Reason: Cough Prednisone [Deltasone 20 mg Tablet] 2 tab PO DAILY 5 Days tablet Referrals: [facility] [Provider Group] - Follow up in 3-5 days
[2018-07-15 07:39] VITALS: BP 121/71
== END 2018-07-15 07:39 | disposition home or self-care (01) ==
LOC: ER 05:43
DX: J45.21 Mild intermittent asthma with (acute) exacerbation (principal); Z79.899 Other long term (current) drug therapy; R06.02 Shortness of breath; R05 Cough; R00.0 Tachycardia, unspecified; F17.200 Nicotine dependence, unspecified, uncomplicated
CPT/HCPCS: 94640 ×2; 99284; J7512; J7620

== ENCOUNTER 2019-07-19 17:39 | Emergency (ER) | payer SELFPAY ==
[2019-07-19] MEDS ORDERED: METHYLPREDNISOLONE INJ 125 MG/2 ML SDV IV ONE (17:55)
[2019-07-19] MEDS ORDERED: ALBUTEROL SULFATE HFA (90 MCG/PUFF) 8 GM MDI (1 MDI/ER DISP) IH ONE (17:56)
[2019-07-19] MEDS: MAGNESIUM SULFATE/D5W 1 GM/100 ML RTUPB IV SCH ×2 (18:17→19:05)
[2019-07-19] MEDS ORDERED: ALBUTEROL SULFATE HFA (90 MCG/PUFF) 8 GM MDI IH ONE (18:18)
--- NOTE | 2019-07-19 18:21 | RADIOLOGY REPORT (SQ) ---
EXAM DESCRIPTION: CHEST SINGLE VIEW IMAGES COMPLETED DATE/TIME: 07/19/2019 6:09 pm REASON FOR STUDY: cough/fever COMPARISON: 2017 NUMBER OF VIEWS: One view. TECHNIQUE: Single frontal radiographic view of the chest acquired. LIMITATIONS: None. FINDINGS: LUNGS AND PLEURA: No opacities, masses or pneumothorax. No pleural effusion. MEDIASTINUM AND HILAR STRUCTURES: No masses. Contour normal. HEART AND VASCULAR STRUCTURES: Heart normal in size. Normal vasculature. BONES: No acute findings. HARDWARE: None in the chest. OTHER: No other significant finding. IMPRESSION: NO SIGNIFICANT RADIOGRAPHIC FINDING IN THE CHEST. TECHNICAL DOCUMENTATION: JOB ID: [id number] [email or web address] All Rights Reserved Reading location - IP/workstation name: [email or web address]
[2019-07-19 19:04] LABS: A TYPE INFLUENZA AG NEGATIVE (NEGATIVE); B INFLUENZA AG NEGATIVE (NEGATIVE)
[2019-07-19] MEDS ORDERED: IPRATROPIUM/ALBUTEROL 0.5-2.5 MG/3 ML AMPUL NEB ONE ×2 (19:07)
[2019-07-19] MEDS ORDERED: ALBUTEROL SULFATE 0.083% NEB 2.5 MG/3 ML AMPUL NEB ONE (19:08)
--- NOTE | 2019-07-19 19:10 | ER Document Report ---
ED Respiratory Problem - General Mode of Arrival: Ambulatory Information source: Patient TRAVEL OUTSIDE OF THE [place] IN LAST 30 DAYS: No <ZHANNA ELDRIDGE - Last Filed: 07/19/19 19:51> <DORI DUMONT IV - Last Filed: 07/20/19 00:40> - General Chief Complaint: Shortness Of Breath Stated Complaint: SHORTNESS OF BREATH Time Seen by Provider: 07/19/19 17:44 Primary Care Provider: ISHA ANN MD [HONORARY] - 07/21/19 Notes: Patient is a 23-year-old female presenting to the emergency department chief complaint of fever and shortness of breath. Patient reports intermittent fever started Sunday. She states she does have a history of asthma and has been having increased shortness of breath. She states she tried to come here to seek treatment and was sent away and given a [id number] to call the [facility] [employer] helpline. She states that she called the number and no one ever called her back. She reports this was approximately 2 days ago. She reports difficulty breathing and shortness of breath have worsened since that time. 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 (ZHANNA ELDRIDGE) - Related Data Allergies/Adverse Reactions: No Known Allergies Allergy (Verified 08/20/18 09:21) Past Medical History - General Information source: Patient - Social History Smoking Status: Current Every Day Smoker Frequency of alcohol use: Social Drug Abuse: None Family History: Hypertension Patient has suicidal ideation: No Patient has homicidal ideation: No - Past Medical History Cardiac Medical History: Denies: Hx Heart Attack, Hx Hypertension Pulmonary Medical History: Reports: Hx Asthma - allergy-induced Neurological Medical History: Denies: Hx Cerebrovascular Accident, Hx Seizures Renal/ Medical History: Denies: Hx Peritoneal Dialysis GI Medical History: Denies: Hx Hepatitis, Hx Hiatal Hernia, Hx Ulcer Psychiatric Medical History: Denies: Hx Depression Infectious Medical History: Denies: Hx Hepatitis Past Surgical History: Denies: Hx Hysterectomy, Hx Mastectomy, Hx Open Heart Surgery, Hx Pacemaker - Immunizations Immunizations up to date: Yes Hx Diphtheria, Pertussis, Tetanus Vaccination: Yes <ZHANNA ELDRIDGE - Last Filed: 07/19/19 19:51> Review of Systems - Review of Systems Constitutional: Chills, Fever EENT: No symptoms reported Cardiovascular: No symptoms reported Respiratory: Cough, Hurts to breathe, Short of breath Gastrointestinal: No symptoms reported Genitourinary: No symptoms reported Female Genitourinary: No symptoms reported Musculoskeletal: No symptoms reported Skin: No symptoms reported Hematologic/Lymphatic: No symptoms reported Neurological/Psychological: No symptoms reported <ZHANNA ELDRIDGE - Last Filed: 07/19/19 19:51> Physical Exam <ZHANNA ELDRIDGE - Last Filed: 07/19/19 19:51> - Vital signs Vitals: Temp Pulse Resp BP Pulse Ox 98.9 F 130 H 32 H 137/74 H 93 07/19/19 17:45 07/19/19 17:45 07/19/19 17:45 07/19/19 17:45 07/19/19 17:45 - Notes Notes: PHYSICAL EXAMINATION: GENERAL: Moderate distress. HEAD: Atraumatic, normocephalic. EYES: Pupils equal round and reactive to light, extraocular movements intact, conjunctiva are normal. ENT: Nares patent, oropharynx clear without exudates. Moist mucous membranes. NECK: Normal range of motion, supple without lymphadenopathy LUNGS: Inspiratory and expiratory wheezes noted bilaterally, increased work of breathing, patient in the tripod position. HEART: Regular rate and rhythm without murmurs ABDOMEN: Soft, nontender, nondistended abdomen. No guarding, no rebound. No masses appreciated. Female : deferred Musculoskeletal: Normal range of motion, no pitting or edema. No cyanosis. NEUROLOGICAL: Cranial nerves grossly intact. Normal speech, normal gait. Normal sensory, motor exams PSYCH: Normal mood, normal affect. SKIN: Warm, Dry, normal turgor, no rashes or lesions noted. (ZHANNA ELDRIDGE) Course - Laboratory Result Diagrams: 07/19/19 18:03 07/19/19 18:03 <ZHANNA ELDRIDGE - Last Filed: 07/19/19 19:51> - Laboratory Result Diagrams: 07/19/19 18:03 07/19/19 18:03 <DORI DUMONT IV - Last Filed: 07/20/19 00:40> - Re-evaluation Re-evalutation: 07/19/19 19:52 Patient moved to room 6 for closer monitoring on the main side as she was in pod 5. Unfortunately conservative measures to improve her breathing were unsuccessful. She is now had 2 g of magnesium 125 a Solu-Medrol and multiple puffs on the albuterol inhaler without relief and in fact her respiratory status has worsened. She reports that she has been intubated in the past for her asthma approximately 2 years ago. Orders placed for DuoNeb x2 and then continuous albuterol nebulizer for 1 hour. (ZHANNA ELDRIDGE) 07/20/19 00:29 Results of ED MSE discussed with patient. Patient's O2 sats are 95% on room air, heart rate is 102, blood pressure is 117/83, respiratory rate is 20. Patient was reevaluated by this MD she is sitting up in bed. She has no evidence of accessory accessory muscle use, dyspnea, tachypnea. Patient has some audible wheezing still present on physical exam, however she says she is breathing much better than she did when she first came in. Patient states her headache is starting to improve. Patient will be discharged with an albuterol MDI and an AeroChamber as well as a prescription for prednisone 60 mg daily for 4 more days. Patient states when she has asthma exacerbation she usually has her boyfriend drive her in from home. This MD emphasized that the patient should call 911 if she starts to have return or worsening of symptoms, trouble breathing or at any other way is starting to feel unwell. Patient expressed understanding of this directive and stated she would call 911 if she needed help. (DORI DUMONT IV) - Vital Signs Vital signs: Temp Pulse Resp BP Pulse Ox 98.6 F 118 H 25 H 117/83 96 07/19/19 22:57 07/19/19 17:55 07/20/19 00:08 07/20/19 00:08 07/20/19 00:08 - Laboratory Laboratory results interpreted by me: 07/19/19 07/19/19 18:03 18:03 WBC 11.6 H RDW 14.3 H Eos % (Auto) 7.4 H Absolute Eos (auto) 0.9 H Total Protein 8.3 H Discharge <ZHANNA ELDRIDGE - Last Filed: 07/19/19 19:51> <DORI DUMONT IV - Last Filed: 07/20/19 00:40> - Discharge Clinical Impression: Asthma exacerbation Condition: Good Disposition: HOME, SELF-CARE Additional Instructions: Return to the Emergency Department without delay if any worse. HOME CARE INSTRUCTIONS & INFORMATION: Thank you for choosing us for your medical needs. We hope you're satisfied with the care you received. After you leave, you must properly care for your problem and, at the same time, observe its progress. Any condition can change. Some illnesses can change rapidly over hours or days. If your condition worsens, return to the Emergency Department or see your physician promptly. ABOUT YOUR X-RAYS AND EKG'S: If you had an EKG or X-rays taken, they have been read by the Emergency Physician. The X-rays and EKG's will also be read by a Radiologist or Sales And Marketing Assistant within 24 hours. If discrepancies are noted, you will be notified by telephone. Please be certain the ED has a correct telephone number & address where you can be reached. Also, realize that some fractures or abnormalities do not show up on initial X-rays. If your symptoms continue, see your physician. ABOUT YOUR LABORATORY TEST: If you had laboratory tests, the results have been reviewed by the Emergency Physician. Some test results (for example cultures) may not be available for several days. You will be contacted if any test result shows you need additional treatment. Please be certain the ED has a correct telephone number and address where you can be reached. ABOUT YOUR MEDICATIONS: You will receive instructions on how to take your medicine on the prescription label you receive. Additional information may be provided by the Pharmacy. If you have questions afterwards, call the ED for clarification or further instructions. Some prescribed medications may cause drowsiness. Do not perform tasks such as driving a car or operating machinery without consulting your Pharmacist. If you feel you need a refill of pain medication, your condition will need re-evaluation. Please do not call for a refill of any medication. ABOUT YOUR SIGNATURE: Signature of this document acknowledges to followin. Understanding that you received emergency treatment and that you may be released before al medical problems are known or treated. Please be certain the ED has a correct phone number & address where you can be reached. 2. Acknowledgement that you will arrange for follow-up care as recommended. 3. Authorization for the Emergency Physician to provide information to your follow-up Physician in order to maximize your care. AT ANY TIME, IF YOUR SYMPTOMS CHANGE SIGNIFICANTLY OR WORSEN OR YOU DEVELOP NEW SYMPTOMS, RETURN TO THE EMERGENCY DEPARTMENT IMMEDIATELY FOR RE-EVALUATION. OUR GOAL IS TO PROVIDE EXCELLENT MEDICAL CARE! WE HOPE THAT WE HAVE MET YOUR EXPECTATIONS DURING YOUR EMERGENCY DEPARTMENT VISIT AND THAT YOU FEEL YOU HAVE RECEIVED EXCELLENT CARE! Aerosol Spacer An aerosol spacer chamber should be used with your inhaler. Spacers helps the aerosol drug get into the airways better. A spacer can be used with cortisone-like drugs such as Azmacort, Beclovent or Vanceril, and with broncho dilator drugs such as Atrovent, Alupent, Proventil, Serevent, and Ventolin. The spacer mixes the medicine with air and holds it suspended in the air, ready for you to breathe it in. It decreases the amount that hits your mouth and throat, which decreases side effects. The spacer helps get the medicines deeper into the bronchial tubes. Up to 2-3 times more medicine gets into the deeper airways. Patients of all ages can benefit from using a spacer. It's very helpful for children and for adults who have trouble timing their inhalation to the puff of the inhaler. It's also useful for adults who have trouble getting the tongue out of the way of the inhaler's blast. Asthma You have been diagnosed as having asthma. This is a condition where there is episodic tightness in the bronchial tubes. Allergies, infections, and polluted or cold air may be contributing factors. Emergency treatment of a severe asthma attack may include adrenaline shots, or bronchodilator aerosol. You may feel lightheaded, have a decreased exercise tolerance and a rapid pulse for an hour or two. Rest and get plenty of fluids. Home treatment of asthma requires bronchodilator drugs. These can be administered by injection, inhalation, or by mouth. Antibiotics and corticosteroids may be required for some patients. You should avoid chemical fumes, dusts, pollens, and exercising in very cold or dry air. If you smoke, stop!! If you develop a fever, increased wheezing, chest pain, or severe shortness of breath, you should contact the doctor immediately Prescriptions: Prednisone [Deltasone 20 mg Tablet] 3 tab PO DAILY 4 Days #12 tablet Forms: Return to Work Referrals: ISHA ANN MD [HONORARY] - 07/21/19
[2019-07-19 19:30] LABS: ABSOLUTE BASOPHILS # (AUTO) 0.1 10^3/uL (0.0-0.2); ABSOLUTE EOSINOPHILS # (AUTO) 0.9 10^3/uL (0.0-0.6); ABSOLUTE LYMPHOCYTES (AUTO) 1.8 10^3/uL (0.5-4.7); ABSOLUTE MONOCYTES (AUTO) 0.7 10^3/uL (0.1-1.4); ABSOLUTE NEUT (AUTO) 8.1 10^3/uL (1.7-8.2); BASOPHILS % (AUTO) 0.7 % (0-2); EOSINOPHILS % (AUTO) 7.4 % (0-6); HEMOGLOBIN 15.5 g/dL (12.0-15.5); LYMPHOCYTES % (AUTO) 15.9 % (13-45); MEAN CORPUSCULAR HEMOGLOBIN 29.7 pg (27.0-33.4); MEAN CORPUSCULAR HGB CONC 34.4 g/dL (32.0-36.0); MEAN CORPUSCULAR VOLUME 86 fl (80-97); PLATELET COUNT 421 10^3/uL (150-450); RED BLOOD COUNT 5.22 10^6/uL (3.72-5.28); RED CELL DISTRIBUTION WIDTH 14.3 % (11.5-14.0); TOTAL CELLS COUNTED % (AUTO) 100 %; WHITE BLOOD COUNT 11.6 10^3/uL (4.0-10.5)
[2019-07-19 19:35] LABS: ALBUMIN 4.6 g/dL (3.5-5.0); ALKALINE PHOSPHATASE 87 U/L (38-126); ANION GAP 13 (5-19); ASPARTATE AMINO TRANSFERASE 34 U/L (14-36); BILIRUBIN,DIRECT 0.4 mg/dL (0.0-0.4); BILIRUBIN,TOTAL 0.5 mg/dL (0.2-1.3); BLOOD UREA NITROGEN 8 mg/dL (7-20); CARBON DIOXIDE 24 mmol/L (22-30); CHLORIDE 102 mmol/L (98-107); GLUCOSE 106 mg/dL (75-110); POTASSIUM 4.9 mmol/L (3.6-5.0); TOTAL PROTEIN 8.3 g/dL (6.3-8.2)
[2019-07-19] MEDS ORDERED: NORMAL SALINE 1000 ML 1,000 ML IV ONE (20:25)
[2019-07-19] MEDS ORDERED: KETOROLAC TROMETHAMINE INJ/PF 30 MG/1 ML SDV IV ONE (20:55)
[2019-07-19] MEDS ORDERED: HYDROCODONE/ACETAMINOPHEN 5-325 MG TABLET PO ONE (23:11)
[2019-07-20 00:14] VITALS: BP 117/83
[2019-07-20] MEDS ORDERED: ALBUTEROL SULFATE HFA (90 MCG/PUFF) 8 GM MDI (1 MDI/ER DISP) IH PRN (00:28)
== END 2019-07-20 01:04 | disposition home or self-care (01) ==
LOC: ER 17:39
DX: Z20.828 Contact with and (suspected) exposure to other viral communicable diseases (principal); J45.909 Unspecified asthma, uncomplicated; R50.9 Fever, unspecified; F17.200 Nicotine dependence, unspecified, uncomplicated
CPT/HCPCS: 99285; 96375; 96365; 96366; 36415; 87040; 87070; 87880; 85025; 87635; 80053; 87804; 71045; J2930; J1885; J3475; J7030; J7620; J3490